=== PATIENT | male | born 1965 | race Caucasian/White ===

== ENCOUNTER 2024-11-10 18:17 | Emergency (ER) | payer OTHER, SELFPAY ==
--- NOTE | ~2024-11-10 | XR_ITS ---
CLINICAL HISTORY: pain --- Additional Notes or Special Instructions: bloated constipation 1 view abdomen Comparison: None provided Findings: No pneumoperitoneum or pneumatosis. Moderate stool burden. No abnormal calcifications. No acute fractures. IMPRESSION: The bowel gas pattern is within normal limits This document has been electronically signed by: Romi Olson MD on 11/10/2024 21:15:01
[2024-11-10 18:41] VITALS: BP 164/79; PULSE 58; RESP 16; TEMP 36.6; O2SAT 98; BMI 33.7
--- NOTE | 2024-11-10 18:42 | ED.GENADULT ---
HPI - General Adult General Chief complaint: Abdominal Pain Stated complaint: Abd pain Time Seen by Provider: 11/10/24 19:22 Source: patient Limitations: no limitations History of Present Illness ED Provider: Lina Guy PA-C HPI narrative: 59-year-old male presents with abdominal bloating for 5 days. Patient states he has been experiencing intermittent bloating, and he feels a bulge in the central abdominal wall. Denies inability to pass flatus, nausea, vomiting or fever, no abdominal pain. Patient states he has had minimal bowel movements over the past few days, but he is going. Patient is seen at urgent Care, they sent him here for further assessment. Related Data Allergies Allergy/AdvReac Type Severity Reaction Status Date / Time No Known Allergies Allergy Verified 11/10/24 18:43 Review of Systems Review of Systems: Yes all other systems are reviewed and are negative Constitutional: Constitutional: Denies fatigue and Denies fever(s) Cardiovascular: Cardiovascular: Denies chest pain and Denies dyspnea Respiratory: Respiratory: Denies cough and Denies dyspnea Gastrointestinal: Gastrointestinal: Denies abdominal pain, Reports bloating, Reports constipation, Denies nausea and Denies vomiting Endocrine: Endocrine: Denies fatigue [facility] Past Medical History Attestation statement: The following information was validated with the patient. Social History Social History Advance Directives: No Advance Directives Information Provided: Yes Do you have a plan to hurt others: No Plan Physical Exam ED Vital Signs: Vital Signs - 24 hr 11/10/24 18:41 Temperature 97.8 F Pulse Rate 58 Respiratory Rate 16 Blood Pressure 164/79 H Pulse Oximetry 98 Oxygen Delivery Method Room Air BMI result Body Mass Index 33.7 Const Other: Alert Orientation/consciousness: patient oriented x3 Resp Effort & Inspection: normal respiratory effort Cardio Other: Normal peripheral perfusion GI Other: Abdomen is soft, mildly distended, obese, there is a breach in the rectus abdominis, no bowel protruding through defect, no guarding no pain Skin Other: Warm dry no rash Neuro General: patient oriented x3, gait normal, no focal motor deficits and CN's II-XI intact bilaterally Psych Other: Cooperative Course Course Course Narrative: RME, this is a rapid medical exam performed by Mikhail Robles please refer to primary provider for complete H&P- 59 year old male presents for evaluation of abdominal pain. His symptoms started 5 days ago and involve most of his abdomen. Deneis any nausea, vomiting, fevers or chills. He was seen at urgent care and referred here for blood work and a CT scan. Medical Decision Making Medical Decision Making MDM Narrative: 59-year-old male presents with abdominal bloating for 5 days. Patient states he has been experiencing intermittent bloating, and he feels a bulge in the central abdominal wall. Denies inability to pass flatus, nausea, vomiting or fever, no abdominal pain. Patient states he has had minimal bowel movements over the past few days, but he is going. Patient is seen at urgent Care, they sent him here for further assessment. No chronic issues History: Per patient I have considered the following differential diagnoses: Strangulated hernia incarcerated hernia, bowel obstruction, constipation Plan: The patient does have a breach in the abdominal wall, without evidence of bowel passing through the defect. Doubtful to be bowel obstruction, he is not actively vomiting he has no pain, he is passing gas and having minimal bowel movements. He is likely just constipated adding a KUB, screening labs already obtained and they are normal. I have independently reviewed the following tests: Labs: No leukocytosis, not anemic, no electrolyte abnormality KUB:Findings: No pneumoperitoneum or pneumatosis. Moderate stool burden. No abnormal calcifications. No acute fractures. IMPRESSION: The bowel gas pattern is within normal limits Lab Data 11/10/24 20:15 11/10/24 20:15 Labs: Lab Results 11/10/24 Range/Units 20:15 WBC 6.2 (4.8-10.8) X10*3/uL RBC 5.09 (4.60-5.80) X10*6/uL Hgb 14.9 (14.0-18.0) g/dl Hct 42.7 (42.0-52.0) % MCV 83.9 (80.0-98.0) fL MCH 29.3 (27.0-33.0) pg MCHC 34.9 (31.0-36.0) g/dl RDW 12.8 (11.0-16.0) % Plt Count 161 (160-400) X10*3/uL MPV 11.1 (9.4-12.4) fL Immature Gran % (Auto) 0.2 (0.0-0.4) % Neut % (Auto) 69.2 (45-73) % Lymph % (Auto) 18.1 L (20-40) % Millard % (Auto) 8.5 (2-11) % Eos % (Auto) 3.5 (0-4) % Baso % (Auto) 0.5 (0-2) % Lymph # (Auto) 1.1 L (1.2-4.9) X10*3/uL Millard # (Auto) 0.5 (0.1-1.2) X10*3/uL Eos # (Auto) 0.2 (0.0-0.4) X10*3/uL Baso # (Auto) 0.0 (0.0-0.2) X10*3/uL Abs Immat Gran (auto) 0.01 (0.00-0.03) X10*3/uL Absolute Neuts (auto) 4.3 (2.0-8.3) x10*3/uL Absolute Nucleated RBC 0.000 (0.0-0.012) X10*3/uL Nucleated RBC % (auto) 0.0 (0.0-0.2) /100WBC Sodium 140 (135-145) mmol/L Potassium 4.1 (3.3-5.1) mmol/L Chloride 104 (96-108) mmol/L Carbon Dioxide 26 (22-29) mmol/L Anion Gap 14 (12-20) BUN 15 (9-16) mg/dL Creatinine 0.82 (0.5-1.4) mg/dL Estim Creat Clear Calc 115.6 Estimated GFR > 60 Random Glucose 87 (60-115) mg/dL Calcium 9.3 (8.4-10.2) mg/dL Magnesium 2.2 (1.6-2.6) mg/dL Total Bilirubin 0.7 (0.0-1.0) mg/dL AST 31 (5-37) U/L ALT 19 (0-40) U/L Alkaline Phosphatase 50 (39-117) U/L Total Protein 7.6 (6.5-8.0) g/dL Albumin 4.6 (3.5-5.0) g/dL Lipase 15 (8-78) U/L Discharge Plan Discharge Clinical Impression: Constipation Patient Disposition: Home, Self-Care Instructions: Constipation (ED) Additional Instructions: All of your labs were normal, you were found to be constipated. See home care instructions. Use OTC Colace twice a day. Use OTC MiraLax every hour until you begin having multiple large volume bowel movements. Follow up with your primary care provider as needed. Print Language: Syriac
--- OUTSIDE RECORDS SUMMARY | 2024-11-10 19:19 | XMS_ITS | Clinical Summary ---
Author Organization [facility] Address [address] [place] [address] Care Team Providers Care Dirt Bike Mechanic Name Role Phone Corrina Cm MD Primary Care Provider [phone] Allergies No known active allergies Medications Medication Sig Dispensed Refills Start Date End Date Status sertraline (ZOLOFT) 50 MG tablet Take 50 mg by mouth daily. 0 12/22/2020 Active clotrimazole-betame thasone (LOTRISONE) cream Apply topically 2 (two) times a day. 30 g 0 03/30/2021 Active methylPREDNISolone (MEDROL DOSEPACK) 4 MG tablet follow package directions 21 tablet 0 05/30/2021 Active meloxicam (MOBIC) 15 MG tablet Take 1 tablet (15 mg total) by mouth daily. 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/18/2019 Umbilical hernia without obstruction and without gangrene 01/18/2019 SBO (small bowel obstruction) 01/18/2019 Small bowel obstruction 12/23/2018 Anxiety 08/07/2015 Immunizations Name Administration Dates Next Due Covid-19 (J&J) 08/09/2020 Influenza Quad (Afluria/Fluz one) 0.5mL >=6mon Vial (SD-IIV4) 03/23/2018 Influenza Trivalent (Fluzone /Afluria) 5.0mL Multi-dose Vial 01/29/2021,02/16/2018,06/09/2017 Tdap 01/21/2022,06/16/2017 Family History Medical History Relation Name Comments Breast cancer Neg Hx Prostate cancer Neg Hx Social History Tobacco Use Types Packs/Day Years Used Date Smoking Tobacco: Never Smokeless Tobacco: Never Alcohol Use Standard Drinks/Week Comments Yes 0 (1 standard drink = 0.6 oz pur e alcohol) Beer on weekends occas Sex and Gender Information Value Date Recorded Sex Assigned at Male 12/23/2018 3:22 PM EDT Gender Identity Not on file Sexual Orientation Not on file Job Start Date Occupation Industry Not on file Not on file Not on file Last Filed Vital Signs Vital Sign Reading Time Taken Comments Blood Pressure 145/75 05/16/2023 3:31 PM EST Pulse 68 05/16/2023 3:31 PM EST Temperature 36.6 C (97.9 F) 05/16/2023 3:31 PM EST Respiratory Rate 20 05/16/2023 3:31 PM EST Oxygen Saturation 100% 05/16/2023 3:31 PM EST Inhaled Oxygen Concentration - - Weight 91.6 kg (202 lb) 05/16/2023 3:31 PM EST Height 172.7 cm (5' 8 ) 05/16/2023 3:31 PM EST Body Mass Index 30.71 05/16/2023 3:31 PM EST Plan of Treatment Health Maintenance Due Date Last Done Comments Hepatitis C Screening 1965 Depression Screening 1975 BMI Counseling 07/18/1981 Preventative Health Evaluation 07/18/1981 Colon Cancer Screening (Colonoscopy) 07/18/2008 COVID-19 Vaccine ( season) 2024 08/09/2020 Influenza Vaccine (#1) 2025 , 03/23/2018, 02/16/2018, Additional history exists DTap / Tdap / Td (3 - Td or Tdap) 01/22/2032 01/21/2022, 06/16/2017 RSV Adult > 60+ Yrs or (1 - 1-dose 75+ series) 07/18/2038 Shingrix-Zoster Vaccine Completed 01/20/2023, 09/16 Hepatitis B Vaccines Aged Out No long er eligible based on patient's age to complete this topic Pneumococcal Vaccine Aged Out No long er eligible based on patient's age to complete this topic RSV Ped < 20 months Aged Out No longe r eligible based on patient's age to complete this topic Advance Directives For more information, please contact: [phone] Latest Code Status on File Code Status Date Activated Date Inactivated Comments Full Code 12/23/2018 8:53 PM 12/28/2018 3:35 PM This code status was ascertained in the following way: discussion with patient . Care Teams Dirt Bike Mechanic Relationship Specialty Start Date End Date Corrina Cm MD [address] [place] [address] PCP - General Internal Medicine 09/04/16
--- OUTSIDE RECORDS SUMMARY | 2024-11-10 19:19 | XMS_ITS | Clinical Summary ---
Author Organization [facility] Address [address] [place] [address] Phone Care Team Providers Care Claims Representative Name Role Phone Corrina Cm MD Primary Care Provider [phone]- [phone] Allergies No known active allergies Medications sertraline (ZOLOFT) 50 mg tablet Take 1 tablet (50 mg total) by mouth. 1 Active methylPREDNISo lone (MEDROL DOSPAK) 4 mg tablet See administration instructions. 2 Active meloxicam (MOBIC) 15 mg tablet Take 1 tablet (15 mg total) by mouth 1 (one) time each day. 2 Active clotrimazole-b etamethasone (LOTRISONE) 1-0.05 % cream Apply topically. 1 Active cetirizine-pse udoephedrine (ZyrTEC-D) 5-120 mg per 12 hr tablet Take 1 tablet by mouth 2 (two) times a day. Active doxycycline (MONODOX) 100 mg capsule Take 1 capsule (100 mg total) by mouth 2 (two) times a day. Take with at least 8 ounces (large glass) of water, do not lie down for 30 minutes after Active fluconazole (DIFLUCAN) 150 mg tablet Take 1 tablet (150 mg total) by mouth 1 (one) time. Active fluticasone propionate (FLONASE) 50 mcg/actuation nasal spray Administer 1 spray into each nostril 1 (one) time each day. Shake gently. Before first use, prime pump. After use, clean tip and replace cap. Active cyclobenzaprin e (FLEXERIL) 10 mg tablet Take 1 tablet (10 mg total) by mouth 2 (two) times a day if needed for muscle spasms for up to 5 days. 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 Umbilical hernia without obstruction and without gangrene 01/18/2019 Small bowel obstruction (CMS/HCC V24, CMS/HCC V2 8) 12/23/2018 Anxiety 08/07/2015 Immunizations Name Administration Dates Next Due Influenza Quadrivalent, with preservative (Fluzone; Afluria) 6mo and older 03/23/2018 Influenza trivalent, with pr eservative (Fluzone; Afluria) 6mo and older 01/29/2021,02/16/2018,06/09/2017 Tdap Tetanus diptheria acell ular pertussis (Boostrix; Adacel) 7yo and older 01/21/2022,06/16/2017 Surgical History Surgery Date Site/Laterality Comments TYMPANOSTOMY TUBE PLACEMENT PROCEDURE:TYMPANOSTOMY TUBE PLACEMENT HERNIA REPAIR PROCEDURE:HERNIA REPAIR;COMMENT:x 2 CIRCUMCISION, PRIMARY 08/06/2017 N/A PROCEDURE:CIRCUMCISION;COMMENT:P rocedure: CIRCUMCISION; Surgeon: Boyd Samuel MD; Location: [facility] MAIN OPERATING ROOM; Service: Urology; Laterality: N/A; Medical History Medical History Date Comments Anxiety DX:Anxiety Family History Medical History Relation Name Comments Breast cancer Neg Hx Prostate cancer Neg Hx Social History Tobacco Use Types Packs/Day Years Used Date Smoking Tobacco: Never Smokeless Tobacco: Never Alcohol Use Standard Drinks/Week Comments Yes 0 (1 standard drink = 0.6 oz pur e alcohol) Sex and Gender Information Value Date Recorded Sex Assigned at Not on file Legal Sex Male 9:22 PM EST Gender Identity Not on file Sexual Orientation Not on file Obstetrics History Last Filed Vital Signs Vital Sign Reading Time Taken Comments Blood Pressure 160/82 07/08/2024 7:58 PM EST Pulse 62 07/08/2024 7:58 PM EST Temperature 36.7 C (98.1 F) 07/08/2024 7:58 PM EST Respiratory Rate 18 07/08/2024 7:58 PM EST Oxygen Saturation 100% 07/08/2024 7:58 PM EST Inhaled Oxygen Concentration - - Weight 93 kg (205 lb) 07/08/2024 7:58 PM EST Height 175.3 cm (5' 9 ) 07/08/2024 7:58 PM EST Body Mass Index 30.27 07/08/2024 7:58 PM EST Plan of Treatment Health Maintenance Due Date Last Done Comments Pneumococcal Vaccine: 50+ Years (1 of 1 - PCV) 07/18/2013 Colorectal Cancer Screening: Colonoscopy 04/10/2022 Depression Screening 04/10/2022 HIV Screening 04/10/2022 Hepatitis C Screening 04/10/2022 Social Influencers of Health Screening 04/10/2022 COVID-19 Vaccine ( season) 2024 08/09/2020 Influenza Vaccine (#1) 2025 , 03/23/2018, 02/16/2018, Additional history exists Cholesterol Screening (Lipid Panel) 09/11/2027 09/10/2022 DTaP,Tdap,and Td Vaccines (3 - Td or Tdap) 01/22/2032 01/21/2022, 06/16/2017 RSV Immunization Adult Patients (1 - 1-dose 75+ series) 07/18/2038 Zoster Vaccines Completed 01/20/2023, 09/16/2022 HIB Vaccines Aged Out No longer eligi ble based on patient's age to complete this topic HPV Vaccines Aged Out No longer eligi ble based on patient's age to complete this topic Hepatitis A Vaccines Aged Out No long er eligible based on patient's age to complete this topic Hepatitis B Vaccines Aged Out No long er eligible based on patient's age to complete this topic IPV Vaccines Aged Out No longer eligi ble based on patient's age to complete this topic MMR Vaccines Aged Out No longer eligi ble based on patient's age to complete this topic Meningococcal ACWY Vaccine Aged Out N o longer eligible based on patient's age to complete this topic Meningococcal B Vaccine Aged Out No l onger eligible based on patient's age to complete this topic RSV Immunization Patients Under 20 months Aged Out No longer eligible based on patient's age to complete this topic Varicella Vaccines Aged Out No longer eligible based on patient's age to complete this topic Procedures Procedure Name Priority Date/Time Associated Diagnosis Comments LIPID PANEL Routine 09/10/2022 from Last 3 Months or Most Recently Relevant to Health Maintenance Results * Lipid panel (09/10/2022) LDL/HDL Ratio 0 Comment:no interpretation Triglycerides 0 mg/dL Comment:no interpretation Cholesterol 0 mg/dL Comment:no interpretation HDL 0 mg/dL Comment:no interpretation LDL Cholesterol 0.0 mg/dL Comment:no interpretation Blood Venous blood specimen / Unknown us Historical Provider LAB BLOOD ORDERABLES Teresa l Result from Last 3 Months or Most Recently Relevant to Health Maintenance [place] [address] [place] [address] [employer] Care Teams Claims Representative Relationship Specialty Start Date End Date Corrina Cm MD [address] [place] [address] PCP - General Internal Medicine 09/04/16
[2024-11-10 20:00] VITALS: BP 132/78; PULSE 70; RESP 18; TEMP 36.9; O2SAT 99
[2024-11-10 20:59] LABS: MANUAL DIFF FLAG NO
[2024-11-10 21:02] LABS: Hematocrit 42.7 % (42.0-52.0); Hemoglobin 14.9 g/dl (14.0-18.0); Imm Gran Abs Auto 0.01 X10*3/uL (0.00-0.03); Imm Gran Pct Auto 0.2 % (0.0-0.4); Lymphocytes Absolute Auto 1.1 X10*3/uL (1.2-4.9); Mean Corpuscular HGB Conc 34.9 g/dl (31.0-36.0); Mean Corpuscular Hemoglobin 29.3 pg (27.0-33.0); Mean Corpuscular Volume 83.9 fL (80.0-98.0); NRBC Abs Auto 0.000 X10*3/uL (0.0-0.012); NRBC Pct Auto 0.0 /100WBC (0.0-0.2); Platelet Count 161 X10*3/uL (160-400); Red Blood Count 5.09 X10*6/uL (4.60-5.80); White Blood Count 6.2 X10*3/uL (4.8-10.8)
[2024-11-10 21:19] LABS: Alanine Aminotransferase 19 U/L (0-40); Albumin Level 4.6 g/dL (3.5-5.0); Alkaline Phosphatase 50 U/L (39-117); Anion Gap 14 (12-20); Aspartate Amino Transferase 31 U/L (5-37); Blood Urea Nitrogen 15 mg/dL (9-16); Calcium 9.3 mg/dL (8.4-10.2); Carbon Dioxide 26 mmol/L (22-29); Chloride 104 mmol/L (96-108); Creatinine Clr Calc Pharmacy 115.6; Estimated Glomerular Filt Rate > 60; Lipase 15 U/L (8-78); Potassium 4.1 mmol/L (3.3-5.1); Sodium 140 mmol/L (135-145); Total Protein 7.6 g/dL (6.5-8.0)
[2024-11-10 21:38] LABS: Magnesium 2.2 mg/dL (1.6-2.6)
[2024-11-10 22:08] VITALS: BP 132/78; PULSE 70; RESP 18; TEMP 36.9; O2SAT 99
== END 2024-11-10 22:13 | disposition home or self-care (01) ==
PROVIDERS: Physician Assistant; Emergency Provider Emergency Medicine Emergency Medical Services
DX: K59.00 Constipation, unspecified (principal); R10.9 Unspecified abdominal pain
CPT/HCPCS: 36415; 74018; 80053; 83690; 83735; 85025; 99283

== ENCOUNTER → 2024-11-10 19:48 | Outpatient (BNV) | payer OTHER, SELFPAY | PROVIDERS: Emergency Provider Emergency Medicine Emergency Medical Services; Visit Provider Nuclear Medicine | DX: R10.9 Unspecified abdominal pain (principal) | CPT/HCPCS: 74018 ==

== ENCOUNTER 2025-02-14 10:33 | Outpatient (AMB) | payer OTHER, SELFPAY ==
--- OUTSIDE RECORDS SUMMARY | 2022-01-21 12:03 | XMS_ITS | Encounter Summary ---
Author Organization [facility] Address [address] [place] [address] Care Team Providers Care Programmer Engineering And Scientific Name Role Phone Corrina Cm MD Primary Care Provider [phone] Corrina Cm MD Unavailable [phone] Encounter Details Date Type Department Care Team (Late st Contact Info) Description 01/21/2022 12:03 PM EDT Hospital Encounter [facility] [address] [place] [phone] Social History Tobacco Use Types Packs/Day Years [...] on filedocumented in this encounter Care Teams Programmer Engineering And Scientific Relationship Specialty Start Date End Date Corrina Cm MD PCP - General Internal Medicine 07/31/15 10/02/24 Corrina Cm MD [address] [place] [address] PCP - [employer] Attributed 06/03/20 06/02/23 documented as of this encounter
[2025-02-14 11:06] VITALS: BP 112/62; PULSE 59; RESP 18; TEMP 36.3; O2SAT 97; BMI 27.5
--- NOTE | 2025-02-14 11:06 | MHC.PC.OV ---
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 Accompanied by his , they moved from [place] over a year ago. Previous PCP: Last visit:Last year, year Last PE:August last year Specialist: urology ( Urology), needs new referral, GI Past medical history: anxiety, GERD, frequent urination Medications: Family HX: Problem: The patient is a 59-year-old male presenting with anxiety and gastroesophageal reflux disease management. The patient reports experiencing anxiety, which he describes as aggravation and worry, particularly at work. He has previously been prescribed hydroxyzine for anxiety, but he did not find it effective and discontinued use without consulting his physician. He is interested in exploring other medication options to manage his anxiety. Per chart review: The patient was on Paxil with positive effect but felt like he did not need this medication anymore and self-discontinued it. The patient has a history of gastroesophageal reflux disease (GERD), for which he is currently taking omeprazole 40 mg daily. He initially tried pantoprazole, which was ineffective, leading to the switch to omeprazole, which he reports is managing his symptoms well. He has made lifestyle changes, including switching from regular coffee to mushroom coffee, which he believes has contributed to weight loss and reduced bloating. The patient reports right shoulder pain, which he attributes to his physically demanding job involving heavy lifting. The pain is exacerbated by certain movements, such as the empty can test, and he occasionally takes Tylenol for relief. 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 1. Little interest or pleasure in doing things: not at all 2. Feeling down, depressed, or hopeless: not at all 3. Trouble falling or staying asleep, or sleeping too much: not at all 4. Feeling tired or having little energy: not at all 5. Poor appetite or overeating: not at all 6. Feeling bad about yourself - or that you are a failure or have let yourself or your family down: not at all 7. Trouble concentrating on things, such as reading the newspaper or watching television: not at all 8. Moving or speaking so slowly that other people could have noticed. Or the opposite - being so fidgety or restless that you have been moving around a lot more than usual: not at all 9. Thoughts that you would be better off or of hurting yourself in some way: not at all Total score: 0 Depression Screening Interpretation: Negative Depression Screening Done: Yes 38607 - PHQ-9 Billing: Yes Source: Developed by Drs. Meng Walters, Alem Rolon, Hema Mace and colleagues, with an educational callie from [employer]. Thrive Questionnaire I am a: Patient What is your living situation today?: I have a steady place to live Within the past 12 months, did the food you bought not last and you didn't have the money to get more?: I choose not to answer this question Within the past 12 months, did you worry whether your food would run out before you got money to buy more?: I choose not to answer this question Do you have trouble paying for medicines?: No Do you have trouble getting transportation to medical appointments?: No Do you have trouble paying your heating and electricity bill?: No Do you have trouble taking care of your child, family member or friend?: No Do you have trouble with day-to-day activities such as bathing, preparing meals, shopping, managing finances, etc.?: No Are you currently unemployed and looking for a job?: No Are you interested in more education?: No Please select the resources that you would like help with: None Currently or been in a relationship where the following occur: I choose not to answer THRIVE Score: 0 AUDIT C Alcohol Use Questionnaire (AUDIT-C) 1. How often do you have a drink containing alcohol?: Never Total Score: 0 ELLIOT-7 AMB Questionnaire ELLIOT-7 Feeling nervous, anxious, or on edge: 0 = Not at all Not being able to stop or control worryin = Not at all Worrying too much about different things: 0 = Not at all Trouble relaxin = Not at all Being so restless that it is hard to sit still: 0 = Not at all Becoming easily annoyed or irritable: 0 = Not at all Feeling afraid as if something awful might happen: 0 = Not at all Total ELLIOT-7 score (0-4 normal; 5-9 mild; 10-14 moderate; 15-21 severe): 0 Source: Developed by Drs. Meng Walters, Alem Rolon, Hema Mace and colleagues, with an educational callie from [employer]. ELLIOT-7 Assessment Billing ELLIOT-7 Assessment Tool: ELLIOT-7 Assessment 03316 Review of Systems Const Denies headache(s) Eyes Denies loss of vision ENT Denies vertigo, Denies dizziness, Denies headache(s) and Denies sore throat Card Denies chest pain, Denies leg edema and Denies lightheadedness Resp Denies cough, Denies hemoptysis and Denies wheezing GI Denies abdominal pain, Denies melena, Denies constipation, Reports heartburn (improves with medication), Denies diarrhea and Denies vomiting Denies dysuria, Reports urinary frequency (Chronic) and Denies urinary urgency Musc Reports arthralgias (right shoulder), Denies joint swelling, Denies numbness and Denies tingling Skin/Breast Denies lesions and Denies rash Neuro Denies Abnormal speech present, Denies behavioral changes, Denies vertigo, Denies dizziness, Denies headache(s), Denies loss of vision, Denies memory loss, Denies numbness and Denies tingling Psych Reports anxiety, Denies behavioral changes, Denies depression, Reports difficulty concentrating, Denies memory loss and Denies panic attacks Humberto/Lymph Denies easy bleeding and Denies easy bruising Aller/Immun Denies wheezing Physical exam (Primary Care) Vital Signs: Last Vital Signs Temp 97.3 F 02/14/25 11:06 Pulse 59 02/14/25 11:06 Resp 18 02/14/25 11:06 BP 112/62 02/14/25 11:06 Pulse Ox 97 02/14/25 11:06 Oxygen Delivery Method Room Air 02/14/25 11:06 BMI result Body Mass Index 27.5 Tobacco/Smoking Status: Tobacco use Status Tobacco use date assessed 02/14/25 02/14/25 11:14 Patient Tobacco Use Status Never used Tobacco 02/14/25 11:14 e-Cigarette/Vaping Use Never Used 02/14/25 11:14 PHQ-9: PHQ-9 Score PHQ-9: Total score 0 02/16/25 23:42 Depression Screening Interpretation: Negative Currently or been in a relationship where the following occur: I choose not to answer Const General: healthy appearing, no acute distress, alert and awake Nutritional Appearance: well nourished Orientation/consciousness: oriented to person, oriented to place and oriented to time HENMT Ears: TM's normal bilaterally General nose exam: Normal nasal mucous membranes and turbinates present Eyes Conjunctivae: conjunctivae normal Sclerae: sclerae normal Pupils: Equal, round and reactive pupils present Neck Neck: Yes no lymphadenopathy and Yes no JVD Thyroid: Thyroid normal Carotids: no bruits Resp Effort & Inspection: normal respiratory effort and not tachypneic Auscultation: no crackles, no rales, no rhonchi and no wheezes Cardio Rate: regular rate Rhythm: regular rhythm Heart sounds: no murmurs and normal S1 and S2 GI Palpation (GI): Soft to palpation, Tenderness to palpation present (GI) in the LLQ and in the RLQ, no hepatomegaly and no splenomegaly Auscultation: normal bowel sounds General: Yes no CVA tenderness Back/Spine/Pelvis Back: no CVA tenderness Skin General skin exam: no rashes or lesions noted and dry skin Neuro General: oriented to person, oriented to place and oriented to time Cranial nerves: Yes Equal, round and reactive pupils present Speech: No Abnormal speech present Gait exam (Neuro): Normal gait present Motor exam (neuro): no tremor noted Extrem Right upper extremity: full ROM and shoulder/upper arm Details: normal ROM; no tenderness and no swelling Left upper extremity: full ROM Right lower extremity: full ROM; no edema Left lower extremity: full ROM; no edema Psych Mental Status: mental status grossly normal Speech and movement: Normal speech and movement present Affect: normal affect Attitude: cooperative Thought process: Normal thought process present Coding Level of Care Code New Pt Level 4 (55204) Diagnoses Gastroesophageal reflux disease, unspecified whether esophagitis present K21.9 Esophagitis presence: esophagitis presence not specified Urinary frequency R35.0 Anxiety F41.9 Right shoulder pain, unspecified chronicity M25.511 Chronicity: unspecified Abdominal pain, unspecified abdominal location R10.9 Abdominal location: unspecified location Additional Codes PHQ-9 - 59325 - PHQ-9 Billing: Yes ([id number]) ELLIOT-7 Assessment Billing - ELLIOT-7 Assessment Tool: ELLIOT-7 Assessment 41688 ([id number]) Time Spent (min) 39 Assessment & Plan Assessment & Plan (1) GERD (gastroesophageal reflux disease): Code(s): K21.9 - Gastro-esophageal reflux disease without esophagitis Category: Medical Qualifiers: Esophagitis presence: esophagitis presence not specified Qualified Code(s): K21.9 - Gastro-esophageal reflux disease without esophagitis Plan: The patient is currently managing GERD with omeprazole 40 mg daily, which has been effective. Lifestyle modifications, including dietary changes, have also contributed to symptom improvement. (2) Urinary frequency: Code(s): R35.0 - Frequency of micturition Category: Medical Plan: Patient has a history of frequent urination. Evaluated by Urology in the past without any acute findings. He is requesting a new urology referral. He was going to [facility] urology, but since have moved to [place]. Urology referral placed (3) Anxiety: Code(s): F41.9 - Anxiety disorder, unspecified Category: Medical Plan: The patient expressed interest in exploring medication options for anxiety management, as previous treatment with hydroxyzine was ineffective. Upon review of the patient medical records. It was noted that he was started on Paxil with positive effects; however, the patient self discontinued the medication stating that he did not need it anymore. We will discuss this further with the patient upon his follow up visit before starting him on any medications. Considering psych referral (4) Right shoulder pain: Code(s): M25.511 - Pain in right shoulder Category: Medical Qualifiers: Chronicity: unspecified Qualified Code(s): M25.511 - Pain in right shoulder Plan: The patient reports shoulder pain likely due to occupational strain from heavy lifting. An x-ray of the shoulder has been ordered to further evaluate the cause of pain. (5) Abdominal pain: Code(s): R10.9 - Unspecified abdominal pain Category: Medical Qualifiers: Abdominal location: unspecified location Qualified Code(s): R10.9 - Unspecified abdominal pain Plan: Abdominal pain across lower abdomen with palpation. Abdominal ultrasound ordered to further evaluate Orders: Orders Comprehensive [place]. Panel Fast 02/14/25 Z00. - Encounter for general adult medical examination without abnormal findings UA CC w/rflx Micro + Cult 02/14/25. - Encounter for general adult medical examination without abnormal findings TSH reflex Free T4 02/14/2500. - Encounter for general adult medical examination without abnormal findings Vitamin D 25-OH Total 02/14/25 Z00.00 - Encounter for general adult medical examination without abnormal findings Complete Blood Count Auto Diff 02/14/2500. - Encounter for general adult medical examination without abnormal findings Lipid Panel 02/14/2500. - Encounter for general adult medical examination without abnormal findings PSA,Total (Free>4and<10) 02/14/25 Z00.00 - Encounter for general adult medical examination without abnormal findings US abdomen complete 02/14/25 R10.9 - Unspecified abdominal pain XR shoulder RT min 2V 02/14/25 M25.511 - Pain in right shoulder Referrals Urology Referral R35.0 - Frequency of micturition
--- OUTSIDE RECORDS SUMMARY | 2025-02-14 12:32 | XMS_ITS | Encounter Summary ---
Author Organization [address] [address] Care Team Providers Care Fitness Studies Teacher Name Role Phone Corrina Cm MD Primary Care Provider + [phone] Corrina Cm MD Unavailable [phone] Corrina Cm MD Unavailable [phone] Corrina Cm MD Unavailable [phone] Encounter Details Date Type Department Care Team (Late st Contact Info) Description 06/20/2017 Scanned Document [address] [phone] Provider, Generic Social History Tobacco Use Types Packs/Day Years Used Date Smoking Tobacco: Never Smokeless Tobacco: Never Alcohol Use Standard Drinks/Week Comments Yes 8 (1 standard drink = 0.6 oz pur e alcohol) Sex and Gender Information Value Date Recorded Sex Assigned at Not on file Legal Sex Male 9:08 AM EDT Gender Identity Not on file Sexual Orientation Not on file documented as of this encounter Plan of Treatment Not on file documented as of this encounter Visit Diagnoses Not on filedocumented in this encounter Care Teams Fitness Studies Teacher Relationship Specialty Start Date End Date Corrina Cm MD PCP - General Internal Medicine 07/31/15 10/02/24 Corrina Cm MD [address] [place] [address] PCP - [employer] Commercial Attributed 06/03/20 06/02/23 Corrina Cm MD [address] [place] [address] PCP - [employer] Commercial Attributed 04/02/19 05/02/20 Corrina Cm MD [address] [place] [address] PCP - [place] Commercial Attributed 10/01/24 documented as of this encounter
--- OUTSIDE RECORDS SUMMARY | 2025-02-14 12:32 | XMS_ITS | Encounter Summary ---
Author Organization [address] [address] Care Team Providers Care Senior Engineering Manager Name Role Phone Corrina Cm MD Primary Care Provider + [phone] Corrina Cm MD Unavailable [phone] Corrina Cm MD Unavailable [phone] Encounter Details Date Type Department Care Team (Late st Contact Info) Description 03/30/2021 Scanned Document [address] [phone] Provider, Generic Social History Tobacco Use Types Packs/Day Years Used Date Smoking Tobacco: Never Smokeless Tobacco: Never Alcohol Use Standard Drinks/Week Comments Yes 8 (1 standard drink = 0.6 oz pur e alcohol) weekends PHQ-2 Answer Date Recorded PHQ-2 Total Score 0 01/29/2021 Sex and Gender Information Value Date Recorded Sex Assigned at Not on file Legal Sex Male 9:08 AM EDT Gender Identity Not on file Sexual Orientation Not on file documented as of this encounter Plan of Treatment Not on file documented as of this encounter Visit Diagnoses Not on filedocumented in this encounter Care Teams Senior Engineering Manager Relationship Specialty Start Date End Date Corrina Cm MD PCP - General Internal Medicine 07/31/15 10/02/24 Corrina Cm MD [address] [facility] [address] PCP - [employer] Commercial Attributed 06/03/20 06/02/23 Corrina Cm MD [address] [place] [address] PCP - [place] Commercial Attributed 10/01/24 documented as of this encounter
--- OUTSIDE RECORDS SUMMARY | 2025-02-14 12:32 | XMS_ITS | Encounter Summary ---
Author Organization [address] [address] Care Team Providers Care Manager Of School Name Role Phone Corrina Cm MD Primary Care Provider + [phone] Corrina Cm MD Unavailable [phone] Corrina Cm MD Unavailable [phone] Corrina Cm MD Unavailable [phone] Encounter Details Date Type Department Care Team (Late st Contact Info) Description 08/05/2017 Scanned Document [address] [phone] Provider, Generic Social History Tobacco [...] filedocumented in this encounter Care Teams Manager Of School Relationship Specialty Start Date End Date Corrina Cm MD PCP - General Internal Medicine 07/31/15 10/02/24 Corrina Cm MD [address] [place] [address] PCP - [employer] Commercial Attributed 06/03/20 06/02/23 Corrina Cm MD [address] [place] [address] PCP - [employer] Commercial Attributed 04/02/19 05/02/20 Corrina Cm MD [address] [place] [address] PCP - [place] Commercial Attributed 10/01/24 documented as of this encounter
--- OUTSIDE RECORDS SUMMARY | 2025-02-14 12:32 | XMS_ITS | Encounter Summary ---
Author Organization [address] [address] Care Team Providers Care Wood Grinder Name Role Phone Corrina Cm MD Primary Care Provider + [phone] Corrina Cm MD Unavailable [phone] Corrina Cm MD Unavailable [phone] Encounter Details Date Type Department Care Team (Late st Contact Info) Description 05/30/2021 Scanned Document [address] [phone] Provider, Generic Social History Tobacco Use Types Packs/Day Years Used Date Smoking Tobacco: Never Smokeless Tobacco: Never Alcohol Use Standard Drinks/Week Comments Yes 8 (1 standard drink = 0.6 oz pur e alcohol) weekends PHQ-2 Answer Date Recorded PHQ-2 Total Score 0 04/09/2021 Sex and Gender Information Value Date Recorded Sex Assigned at Not on file Legal Sex Male 9:08 AM EDT Gender Identity Not on file Sexual Orientation Not on file documented as of this encounter Plan of Treatment Not on file documented as of this encounter Visit Diagnoses Not on filedocumented in this encounter Care Teams Wood Grinder Relationship Specialty Start Date End Date Corrina Cm MD PCP - General Internal Medicine 07/31/15 10/02/24 Corrina Cm MD [address] [facility] [place] [address] PCP - [employer] Commercial Attributed 06/03/20 06/02/23 Corrina Cm MD [address] [place] [address] PCP - [place] Commercial Attributed 10/01/24 documented as of this encounter
--- OUTSIDE RECORDS SUMMARY | 2025-02-14 12:32 | XMS_ITS | Encounter Summary ---
Author Organization [address] [address] Care Team Providers Care Dry Roller Name Role Phone Corrina Cm MD Primary Care Provider + [phone] Corrina Cm MD Unavailable [phone] Corrina Cm MD Unavailable [phone] Corrina Cm MD Unavailable [phone] Encounter Details Date Type Department Care Team (Late st Contact Info) Description 08/06/2017 Scanned Document [address] [phone] Provider, Generic Social History Tobacco [...] on filedocumented in this encounter Care Teams Dry Roller Relationship Specialty Start Date End Date Corrina Cm MD PCP - General Internal Medicine 07/31/15 10/02/24 Corrina Cm MD [address] [place] [address] PCP - [employer] Commercial Attributed 06/03/20 06/02/23 Corrina Cm MD [address] [place] [address] PCP - [employer] Commercial Attributed 04/02/19 05/02/20 Corrina Cm MD [address] [place] [address] PCP - [place] Commercial Attributed 10/01/24 documented as of this encounter
--- OUTSIDE RECORDS SUMMARY | 2025-02-14 12:32 | XMS_ITS | Encounter Summary ---
Author Organization [address] [address] Care Team Providers Care Mail Sorter And Delivery Name Role Phone Corrina Cm MD Primary Care Provider Corrina Cm MD Unavailable [phone] Corrina Cm MD Unavailable [phone] Encounter Details Date Type Department Care Team (Late st Contact Info) Description 01/06/2021 Scanned Document [address] [phone] Provider, Generic Social History Tobacco Use Types Packs/Day Years Used Date Smoking Tobacco: Never Smokeless Tobacco: Never Alcohol Use Standard Drinks/Week Comments Yes 8 (1 standard drink = 0.6 oz pur e alcohol) weekends PHQ-2 Answer Date Recorded PHQ-2 Total Score 0 09/25/2020 Sex and Gender Information Value Date Recorded Sex Assigned at Not on file Legal Sex Male 9:08 AM EDT Gender Identity Not on file Sexual Orientation Not on file documented as of this encounter Plan of Treatment Not on file documented as of this encounter Visit Diagnoses Not on filedocumented in this encounter Care Teams Mail Sorter And Delivery Relationship Specialty Start Date End Date Corrina Cm MD PCP - General Internal Medicine 07/31/15 10/02/24 Corrina Cm MD [address] [place] [address] PCP - [employer] Commercial Attributed 06/03/20 06/02/23 Corrina Cm MD [address] [place] [address] PCP - [place] Commercial Attributed 10/01/24 documented as of this encounter
--- OUTSIDE RECORDS SUMMARY | 2025-02-14 12:32 | XMS_ITS | Encounter Summary ---
Author Organization [facility] Address [address] [place] [address] Care Team Providers Care Electrician Constructor Supervisor Name Role Phone Corrina Cm MD Primary Care Provider + [phone] Corrina Cm MD Unavailable [phone] Corrina Cm MD Unavailable [phone] Encounter Details Date Type Department Care Team (Late st Contact Info) Description 06/12/2020 Scanned Document [address] [phone] Provider, Generic Social History Tobacco Use Types Packs/Day Years Used Date Smoking Tobacco: Never Smokeless Tobacco: Never Alcohol Use Standard Drinks/Week Comments Yes 8 (1 standard drink = 0.6 oz pur e alcohol) weekends Sex and Gender Information Value Date Recorded Sex Assigned at Not on file Legal Sex Male 9:08 AM EDT Gender Identity Not on file Sexual Orientation Not on file documented as of this encounter Plan of Treatment Not on file documented as of this encounter Visit Diagnoses Not on filedocumented in this encounter Care Teams Electrician Constructor Supervisor Relationship Specialty Start Date End Date Corrina Cm MD PCP - General Internal Medicine 07/31/15 10/02/24 Corrina Cm MD [address] [place] [address] [address] [place] [address] PCP - [employer] Commercial Attributed 06/03/20 06/02/23 Corrina Cm MD [address] [place] [address] PCP - [place] Commercial Attributed 10/01/24 documented as of this encounter
--- OUTSIDE RECORDS SUMMARY | 2025-02-14 12:32 | XMS_ITS | Encounter Summary ---
Author Organization [facility] Address [address] [place] [address] Care Team Providers Care Inseam Leveler Name Role Phone Corrina Cm MD Primary Care Provider + [phone] Corrina Cm MD Unavailable [phone] Corrina Cm MD Unavailable [phone] Corrina Cm MD Unavailable [phone] Encounter Details Date Type Department Care Team (Late st Contact Info) Description 06/10/2017 Scanned Document [address] [place] [phone] Corrina Cm MD [address] [facility] [address] [place] [address] Social History Tobacco Use Types Packs/Day Years [...] on filedocumented in this encounter Care Teams Inseam Leveler Relationship Specialty Start Date End Date Corrina Cm MD PCP - General Internal Medicine 07/31/15 10/02/24 Corrina Cm MD [address] [place] [address] PCP - [employer] Commercial Attributed 06/03/20 06/02/23 Corrina Cm MD [address] [place] [address] PCP - [employer] Commercial Attributed 04/02/19 05/02/20 Corrina Cm MD [address] [place] [address] PCP - [place] Commercial Attributed 10/01/24 documented as of this encounter
--- OUTSIDE RECORDS SUMMARY | 2025-02-14 12:32 | XMS_ITS | Encounter Summary ---
Author Organization [address] [address] Care Team Providers Care Wicker Worker Name Role Phone Corrina Cm MD Primary Care Provider + [phone] Corrina Cm MD Unavailable [phone] Corrina Cm MD Unavailable [phone] Corrina Cm MD Unavailable [phone] Encounter Details Date Type Department Care Team (Late st Contact Info) Description 04/06/2020 Scanned Document [address] [place] [phone] Provider, Generic Social History Tobacco Use [...] Exposure Response Date Recorded In the last month, have you been in contact with someone who was confirmed or suspected to have Coronavirus / COVID-19? No / Unsure 04/09/2020 6:18 PM EST documented as of this encounter Plan of Treatment Not on file documented as of this encounter Visit Diagnoses Not on filedocumented in this encounter Care Teams Wicker Worker Relationship Specialty Start Date End Date Corrina Cm MD PCP - General Internal Medicine 07/31/15 10/02/24 Corrina Cm MD [address] [place] [address] PCP - [employer] Commercial Attributed 06/03/20 06/02/23 Corrina Cm MD [address] [place] [address] PCP - United Commercial Attributed 04/02/19 05/02/20 Corrina Cm MD [address] [place] [address] PCP - [place] Commercial Attributed 10/01/24 documented as of this encounter
--- OUTSIDE RECORDS SUMMARY | 2025-02-14 12:33 | XMS_ITS | Encounter Summary ---
Author Organization [facility] Address [address] [place] [address] Care Team Providers Care Event Executive Name Role Phone Corrina Cm MD Primary Care Provider [phone] Corrina Cm MD Unavailable [phone] Corrina Cm MD Unavailable [phone] Encounter Details Date Type Department Care Team (Late st Contact Info) Description 09/07/[address] [phone] Corrina Cm MD [address] [place] [phone] Social History Tobacco Use Types Packs/Day Years [...] on file documented as of this encounter Miscellaneous Notes * Telephone Encounter - Yudelka Price MA - 09/07/2022 2:23 PM EDT PE blood work ordered and Pt notified * Telephone Encounter - Faby Rivas - 09/07/2022 8:54 AM EDT Pt is asking for labs to be placed before his appt. Please call when ordered. documented in this encounter Plan of Treatment Not on file documented as of this encounter Visit Diagnoses Not on filedocumented in this encounter Care Teams Event Executive Relationship Specialty Start Date End Date Corrina Cm MD PCP - General Internal Medicine 07/31/15 10/02/24 Corrina Cm MD [address] [place] [address] PCP - [place] Commercial Attributed 06/03/20 06/02/23 Corrina Cm MD [address] [place] [address] PCP - [place] Commercial Attributed 10/01/24 documented as of this encounter
--- OUTSIDE RECORDS SUMMARY | 2025-02-14 12:33 | XMS_ITS | Encounter Summary ---
Author Organization [facility] Address [address] [place] [address] Care Team Providers Care Production Gear Cutter Name Role Phone Corrina Cm MD Primary Care Provider Corrina Cm MD Unavailable [phone] Corrina Cm MD Unavailable [phone] Corrina Cm MD Unavailable [phone] Encounter Details Date Type Department Care Team (Late st Contact Info) Description 09/04/2016 Scanned Document [address] [phone] Provider, Generic Social History Tobacco Use Types Packs/Day Years Used Date Smoking Tobacco: Never Alcohol Use Standard Drinks/Week Comments [...] on filedocumented in this encounter Care Teams Production Gear Cutter Relationship Specialty Start Date End Date Corrina Cm MD PCP - General Internal Medicine 07/31/15 10/02/24 Corrina Cm MD [address] [place] [address] PCP - [employer] Commercial Attributed 06/03/20 06/02/23 Corrina Cm MD [address] [place] [address] PCP - United Commercial Attributed 04/02/19 05/02/20 Corrina Cm MD [address] [place] [address] PCP - [place] Commercial Attributed 10/01/24 documented as of this encounter
--- OUTSIDE RECORDS SUMMARY | 2025-02-14 12:33 | XMS_ITS | Encounter Summary ---
Author Organization [facility] Address [address] [place] [address] Care Team Providers Care Caponizer Name Role Phone Corrina Cm MD Primary Care Provider + [phone] Corrina Cm MD Unavailable [phone] Corrina Cm MD Unavailable [phone] Corrina Cm MD Unavailable [phone] Encounter Details Date Type Department Care Team (Late st Contact Info) Description 07/30/2015 Scanned Document [address] [place] [phone] Provider, Generic Social History Tobacco Use Types Packs/Day Years Used Date Smoking Tobacco: Never Assessed Sex and Gender Information Value Date Recorded Sex Assigned at Not on file Legal Sex Male 9:08 AM EDT Gender Identity Not on file Sexual Orientation Not on file documented as of this encounter Plan of Treatment Not on file documented as of this encounter Visit Diagnoses Not on filedocumented in this encounter Care Teams Caponizer Relationship Specialty Start Date End Date Corrina Cm MD PCP - General Internal Medicine 07/31/15 10/02/24 Corrina Cm MD 100 [facility] [address] [place] [address] PCP - C[employer]a Commercial Attributed 06/03/20 06/02/23 Corrina Cm MD [address] [place] [address] PCP - United Commercial Attributed 04/02/19 05/02/20 Corrina Cm MD [address] [place] [address] PCP - [place] Commercial Attributed 10/01/24 documented as of this encounter
--- OUTSIDE RECORDS SUMMARY | 2025-02-14 12:33 | XMS_ITS | Encounter Summary ---
Author Organization [facility] Address [address] [place] [address] Care Team Providers Care Burlap Man Name Role Phone Corrina Cm MD Primary Care Provider Corrina Cm MD Unavailable [phone] Corrina Cm MD Unavailable [phone] Corrina Cm MD Unavailable [phone] Encounter Details Date Type Department Care Team (Late st Contact Info) Description 11/20/2015 Scanned Document [address] [phone] Provider, Generic Social History Tobacco [...] on filedocumented in this encounter Care Teams Burlap Man Relationship Specialty Start Date End Date Corrina Cm MD PCP - General Internal Medicine 07/31/15 10/02/24 Corrina Cm MD [address] [place] [address] PCP - C[employer] Commercial Attributed 06/03/20 06/02/23 Corrina Cm MD [address] [place] [address] PCP - United Commercial Attributed 04/02/19 05/02/20 Corrina Cm MD [address] [place] [address] PCP - [place] Commercial Attributed 10/01/24 documented as of this encounter
--- OUTSIDE RECORDS SUMMARY | 2025-02-14 12:33 | XMS_ITS | Encounter Summary ---
Author Organization [facility] Address [address] [place] [address] Care Team Providers Care Braided Band Assembler Name Role Phone Corrina Cm MD Primary Care Provider + [phone] Corrina Cm MD Unavailable [phone] Corrina Cm MD Unavailable [phone] Corrina Cm MD Unavailable [phone] Encounter Details Date Type Department Care Team (Late st Contact Info) Description 03/11/2019 Scanned Document [address] [phone] General Internal Medicine, Scan Social History Tobacco Use Types Packs/Day Years [...] on filedocumented in this encounter Care Teams Braided Band Assembler Relationship Specialty Start Date End Date Corrina Cm MD PCP - General Internal Medicine 07/31/15 10/02/24 Corrina Cm MD [address] [place] [address] PCP - C[employer]a Commercial Attributed 06/03/20 06/02/23 Corrina Cm MD [address] [place] [address] PCP - United Commercial Attributed 04/02/19 05/02/20 Corrina Cm MD [address] [place] [address] PCP - [place] Commercial Attributed 10/01/24 documented as of this encounter
--- OUTSIDE RECORDS SUMMARY | 2025-02-14 12:33 | XMS_ITS | Encounter Summary ---
Author Organization [address] [address] Care Team Providers Care Subway Train Driver Name Role Phone Corrina Cm MD Primary Care Provider + [phone] Corrina Cm MD Unavailable [phone] Corrina Cm MD Unavailable [phone] Corrina Cm MD Unavailable [phone] Encounter Details Date Type Department Care Team (Late st Contact Info) Description 01/25/2019 Scanned Document [address] [place] [phone] Gastroenterology, Scan Social History Tobacco Use Types Packs/Day [...] Procedure Name Priority Date/Time Associated Diagnosis Comments PATHOLOGY GENERAL 01/25/2019 documented in this encounter Results * PATHOLOGY GENERAL (01/25/2019) 01/25/2019 us Scan Gastroenterology [facility] HX PATH PROCEDURES Horacio vanessa Result - Final documented in this encounter Visit Diagnoses Not on filedocumented in this encounter Care Teams Subway Train Driver Relationship Specialty Start Date End Date Corrina Cm MD PCP - General Internal Medicine 07/31/15 10/02/24 Corrina Cm MD [address] [place] [address] PCP - [employer]a Commercial Attributed 06/03/20 06/02/23 Corrina Cm MD [address] [place] [address] PCP - United Commercial Attributed 04/02/19 05/02/20 Crorina Cm MD [address] [place] [address] PCP - [place] Commercial Attributed 10/01/24 documented as of this encounter
--- OUTSIDE RECORDS SUMMARY | 2025-02-14 12:33 | XMS_ITS | Encounter Summary ---
Author Organization [facility] Address [address] [place] [address] Care Team Providers Care Verification Specialist Name Role Phone Corrina Cm MD Primary Care Provider + [phone] Corrina Cm MD Unavailable [phone] Corrina Cm MD Unavailable [phone] Corrina Cm MD Unavailable [phone] Encounter Details Date Type Department Care Team (Late st Contact Info) Description 05/07/2016 Scanned Document [facility] [address] [facility] [address] [place] [phone] Corrina Cm MD 100 [facility] [address] [place] [address] Social History Tobacco Use Types Packs/Day Years [...] on filedocumented in this encounter Care Teams Verification Specialist Relationship Specialty Start Date End Date Corrina Cm MD PCP - General Internal Medicine 07/31/15 10/02/24 Corrina Cm MD [address] [place] [address] PCP - C[employer]a Commercial Attributed 06/03/20 06/02/23 Corrina Cm MD [address] [place] [address] PCP - United Commercial Attributed 04/02/19 05/02/20 Corrina Cm MD [address] [place] [address] PCP - [place] Commercial Attributed 10/01/24 documented as of this encounter
--- OUTSIDE RECORDS SUMMARY | 2025-02-14 12:33 | XMS_ITS | Clinical Summary ---
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/18/2019 Anxiety 08/07/2015 Immunizations Immunization Administration Dates Next Due Influenza (AFLURIA/FLUZONE) Inactivated/Split Quadrivalent with Preservative IM 03/23/2018 Influenza Inactivated/Split Preservative Free IM 01/29/2021,02/16/2018,06/09/2017 Tdap 01/21/2022,06/16/2017 Zoster Vaccine Recombinant (Shingrix) 01/20/2023 ,09/16/2022 Family History Medical History Relation Name Comments Emphysema Father Emphysema Mother Relation Name Status Comments Father Mother Social History Tobacco Use Types Packs/Day Years [...] on file Sexual Orientation Not on file Last Filed Vital Signs Vital Sign Reading Time Taken Comments Blood Pressure 110/78 09/22/2023 7:53 AM EDT Pulse 61 09/22/2023 7:53 AM EDT Temperature 36.2 C (97.1 F) 09/22/2023 7:53 AM EDT Respiratory Rate 16 09/22/2023 7:53 AM EDT Oxygen Saturation 97% 09/22/2023 7:53 AM EDT Inhaled Oxygen Concentration - - Weight 90.4 kg (199 lb 4.8 oz) 09/22/2023 7:53 A M EDT Height 175.3 cm (5' 9 ) 09/22/2023 7:53 AM EDT Body Mass Index 29.43 09/22/2023 7:53 AM EDT Plan of Treatment Health Maintenance Due Date Last Done Comments Pneumococcal Vaccines 50+ (1 of 1 - PCV) 07/18/2013 Influenza Vaccine 12/01/2024 01/29/2021, , 03/23/2018, Additional history exists COVID-19 Vaccine (2 - 2024- season) 2025 08/09/2020 Colonoscopy 01/25/2029 01/25/2019 DTaP/Tdap/Td Vaccines (3 - Td or Tdap) 01/22/2032 01/21/2022, 06/16/2017 RSV Vaccine 50 years and older and Patients (1 - 1-dose 75+ series) 07/18/2038 Zoster (Shingles) Vaccine Completed 01/20/2023, HIV Screening Discontinued Hepatitis B Vaccines Aged Out No long er eligible based on patient's age to complete this topic Hepatitis C Virus Screening Discontinued Insurance [employer] INDIVIDUAL EXCHANGE PPO BLUE CROSS INDIVIDUAL EXCHANGE PPO Care Teams Edge Beader Relationship Specialty Start Date End Date Corrina Cm MD [address] [place] [address] PCP - [place] Commercial Attributed 10/01/24
--- OUTSIDE RECORDS SUMMARY | 2025-02-14 12:33 | XMS_ITS | Clinical Summary ---
Author Organization [facility] Address [address] [place] [address] Care Team Providers Care Or First Assist Registered Nurse Name Role Phone Corrina Cm MD Primary Care Provider [phone] Allergies No known active allergies Medications Medication [...] Screening (Colonoscopy) 07/18/2008 COVID-19 Vaccine ( season) 2025 08/09/2020 Influenza Vaccine (#1) 2025 , 03/23/2018, [...] Advance Directives For more information, please contact: [phone] Latest Code Status on File Code Status Date Activated Date Inactivated Comments Full Code 12/23/2018 8:53 PM 12/28/2018 3:35 PM This code status was ascertained in the following way: discussion with patient . Care Teams Or First Assist Registered Nurse Relationship Specialty Start Date End Date Corrina Cm MD [address] [place] [address] PCP - General Internal Medicine 09/04/16
--- OUTSIDE RECORDS SUMMARY | 2025-02-14 12:33 | XMS_ITS | Encounter Summary ---
Author Organization [facility] Address [address] [place] [address] Care Team Providers Care Business Control Specialist Name Role Phone Corrina Cm MD Primary Care Provider + [phone] Corrina mC MD Unavailable [phone] Corrina Cm MD Unavailable [phone] Corrina Cm MD Unavailable [phone] Encounter Details Date Type Department Care Team (Late st Contact Info) Description 12/23/2018 Scanned Document [address] [phone] General Surgery, Scan Social History Tobacco Use Types Packs/Day [...] on filedocumented in this encounter Care Teams Business Control Specialist Relationship Specialty Start Date End Date Corrina Cm MD PCP - General Internal Medicine 07/31/15 10/02/24 Corrina Cm MD [address] [place] [address] PCP - C[employer]a Commercial Attributed 06/03/20 06/02/23 Corrina Cm MD [address] [place] [address] PCP - United Commercial Attributed 04/02/19 05/02/20 Corrina Cm MD [address] [place] [address] PCP - [place] Commercial Attributed 10/01/24 documented as of this encounter
--- OUTSIDE RECORDS SUMMARY | 2025-02-14 12:33 | XMS_ITS | Encounter Summary ---
Author Organization [facility] Address [address] [place] [address] Care Team Providers Care Deck Hand Name Role Phone Corrina Cm MD Primary Care Provider Corrina Cm MD Unavailable [phone] Corrina Cm MD Unavailable [phone] Corrina Cm MD Unavailable [phone] Encounter Details Date Type Department Care Team (Late st Contact Info) Description 09/18/2015 Scanned Document [address] [phone] Provider, Generic Social History Tobacco Use Types Packs/Day Years Used Date Smoking Tobacco: Never Alcohol Use Standard Drinks/Week Comments Not Asked 0 (1 standard drink = 0.6 oz [...] on filedocumented in this encounter Care Teams Deck Hand Relationship Specialty Start Date End Date Corrina Cm MD PCP - General Internal Medicine 07/31/15 10/02/24 Corrina Cm MD [address] [place] [address] PCP - C[employer]a Commercial Attributed 06/03/20 06/02/23 Corrina Cm MD [address] [place] [address] PCP - United Commercial Attributed 04/02/19 05/02/20 Corrina Cm MD [address] [place] [address] PCP - [place] Commercial Attributed 10/01/24 documented as of this encounter
--- OUTSIDE RECORDS SUMMARY | 2025-02-14 12:33 | XMS_ITS | Encounter Summary ---
Author Organization [facility] Address [address] [place] [address] Care Team Providers Care Proofer Prepress Name Role Phone Corrina Cm MD Primary Care Provider + [phone] Corrina Cm MD Unavailable [phone] Corrina Cm MD Unavailable [phone] Corrina Cm MD Unavailable [phone] Encounter Details Date Type Department Care Team (Late st Contact Info) Description 01/25/2019 Scanned Document [facility] [address] [place] [phone] Corrina Cm MD 100 [facility] [address] [place] [address] Social History Tobacco Use Types Packs/Day Years [...] on filedocumented in this encounter Care Teams Proofer Prepress Relationship Specialty Start Date End Date Corrina Cm MD PCP - General Internal Medicine 07/31/15 10/02/24 Corrina Cm MD [address] [place] [address] PCP - C[employer]a Commercial Attributed 06/03/20 06/02/23 Corrina Cm MD [address] [place] [address] PCP - United Commercial Attributed 04/02/19 05/02/20 Corrina Cm MD [address] [place] [address] PCP - [place] Commercial Attributed 10/01/24 documented as of this encounter
--- OUTSIDE RECORDS SUMMARY | 2025-02-14 12:33 | XMS_ITS | Encounter Summary ---
Author Organization [address] [address] Care Team Providers Care Hand Binder Stripper Name Role Phone Corrina Cm MD Primary Care Provider Corrina Cm MD Unavailable [phone] Corrina Cm MD Unavailable [phone] Corrina Cm MD Unavailable [phone] Encounter Details Date Type Department Care Team (Late st Contact Info) Description 05/23/2017 Scanned Document [address] [phone] Provider, Generic Social History Tobacco [...] on filedocumented in this encounter Care Teams Hand Binder Stripper Relationship Specialty Start Date End Date Corrina Cm MD PCP - General Internal Medicine 07/31/15 10/02/24 Corrina Cm MD [address] [place] [address] PCP - C[employer]a Commercial Attributed 06/03/20 06/02/23 Corrina Cm MD [address] [place] [address] PCP - United Commercial Attributed 04/02/19 05/02/20 Corrina Cm MD [address] [place] [address] PCP - [place] Commercial Attributed 10/01/24 documented as of this encounter
--- OUTSIDE RECORDS SUMMARY | 2025-02-14 12:33 | XMS_ITS | Encounter Summary ---
Author Organization [facility] Address [address] [place] [address] Care Team Providers Care Operations Lead Name Role Phone Corrina Cm MD Primary Care Provider [phone] Corrina Cm MD Unavailable [phone] Corrina Cm MD Unavailable [phone] Encounter Details Date Type Department Care Team (Late Contact Info) Description 06/05/2022 Scanned Document [facility] PRIMARY CARE SCAN Corrina Cm MD [address] [place], [place] [id number] Social History Tobacco Use Types Packs/Day Years [...] suspected to have Coronavirus/COVID-19? No / Unsure 05/21/2022 9:06 AM EST documented as of this encounter Plan of Treatment Not on file documented as of this encounter Visit Diagnoses Not on filedocumented in this encounter Care Teams Operations Lead Relationship Specialty Start Date End Date Corrina Cm MD PCP - General Internal Medicine 07/31/15 10/02/24 Corrina Cm MD [address] [place] [address] PCP - C[employer]a Commercial Attributed 06/03/20 06/02/23 Corrina Cm MD [address] [place], [place] [address] PCP - [place] Commercial Attributed 10/01/24 documented as of this encounter
--- OUTSIDE RECORDS SUMMARY | 2025-02-14 12:33 | XMS_ITS | Encounter Summary ---
Author Organization [address] [address] Care Team Providers Care Senior Sharepoint Developer Name Role Phone Corrina Cm MD Primary Care Provider + [phone] Corrina Cm MD Unavailable [phone] Corrina Cm MD Unavailable [phone] Corrina Cm MD Unavailable [phone] Encounter Details Date Type Department Care Team (Late st Contact Info) Description 12/23/2018 Scanned Document [address] [phone] Provider, Generic Social History Tobacco [...] filedocumented in this encounter Care Teams Senior Sharepoint Developer Relationship Specialty Start Date End Date Corrina Cm MD PCP - General Internal Medicine 07/31/15 10/02/24 Corrina Cm MD [address] [place] [address] PCP - C[employer]a Commercial Attributed 06/03/20 06/02/23 Corrina Cm MD [address] [place] [address] PCP - United Commercial Attributed 04/02/19 05/02/20 Corrina Cm MD [address] [place] [address] PCP - [place] Commercial Attributed 10/01/24 documented as of this encounter
--- OUTSIDE RECORDS SUMMARY | 2025-02-14 12:33 | XMS_ITS | Encounter Summary ---
Author Organization [facility] Address [address] [place] [address] Care Team Providers Care Client Relations Associate Name Role Phone Corrina Cm MD Primary Care Provider Corrina Cm MD Unavailable [phone] Corrina Cm MD Unavailable [phone] Corrina Cm MD Unavailable [phone] Encounter Details Date Type Department Care Team (Late st Contact Info) Description 05/29/2017 Scanned Document [address] [phone] Provider, Generic Social History Tobacco [...] on filedocumented in this encounter Care Teams Client Relations Associate Relationship Specialty Start Date End Date Corrina Cm MD PCP - General Internal Medicine 07/31/15 10/02/24 Corrina Cm MD [address] [place] [address] PCP - C[employer]a Commercial Attributed 06/03/20 06/02/23 Corrina Cm MD [address] [place] [address] PCP - United Commercial Attributed 04/02/19 05/02/20 Corrina Cm MD [address] [place] [address] PCP - [place] Commercial Attributed 10/01/24 documented as of this encounter
--- OUTSIDE RECORDS SUMMARY | 2025-02-14 12:33 | XMS_ITS | Clinical Summary ---
Author Organization [facility] Address [address] [place] [address] Phone Care Team Providers Care Bmet Name Role Phone Nestor Hatch ACAD[employer]IC REGISTRAR Primary Care Provider Allergies No known active allergies Medications sertraline [...] up to 5 days. 10 tablet Active Additional Information Patient not taking.Reported on 11/30/2024 esomeprazole (NexIUM) [address] capsule Take 1 capsule (40 mg total) by mouth 1 (one) time each day before breakfast. Do not open capsule. 90 each 025 Active Active Problems Problem Noted Date Diagnosed Date Diastasis of muscle 01/18/2019 Umbilical hernia without obstruction and without gangrene 01/18/2019 Small bowel obstruction (CMS/HCC V24, CMS/HCC V2 8) 12/23/2018 Anxiety 08/07/2015 Encounters Date Type Department Care Team Description 01/11/2025 Telephone Gastroenterology [facility] [address] [phone] Darya Denton DO 12/26/2024 Telephone Gastroenterology [facility] [address] [phone] Darya Denton DO 12/25/2024 8:35 AM EDT Anesthesia Event [facility] Endoscopy [address] [place] [address] Cari Davenport MD Georgette, Nathaniel, CRNA 12/25/2024 7:51 AM EDT - 12/25/2024 11:59 PM EDT Hospital Encounter [facility] Endoscopy [address] [place] [address] Darya Denton DO Georgette, Nathaniel, CRNA Freeman, Katharine O, MD Upper abdominal pain; Diastasis recti Discharge Disposition: Home or Self Care 12/21/2024 10:00 AM EDT Consult Gastroenterology [facility] [address] [phone] Darya Denton DO Upper abdominal pain; Diastasis recti 12/20/2024 4:16 PM EDT - 12/20/2024 4:36 PM EDT Emergency [facility] Emergency [address] [place] [address] Evangelista Mclain MD Gastroesophageal reflux disease, unspecified whether esophagitis present (Primary Dx) Discharge Disposition: Home or Self Care 12/19/2024 Telephone [facility] [address] [phone] KanRosanne ramírez [place] 12/18/2024 6:22 PM EDT - 12/18/2024 10:28 PM EDT [facility] Emergency [address] [place] [phone] Discharge Disposition: Left Against Medical Advice 12/14/[address] [address] KanRosanne ramírez [place] 11/30/2024 11:45 AM EDT Consult [address] [phone] Laz Marie MD Upper abdominal pain (Primary Dx); Diastasis recti 11/25/2024 6:09 PM EDT - 11/25/2024 6:40 PM EDT [facility] Emergency [address] [place] [phone] Ventral hernia without obstruction or gangrene (Primary Dx) Discharge Disposition: Home or Self Care 11/15/2024 2:24 PM EDT - 11/15/2024 3:26 PM EDT [facility] Emergency [address] [place] [phone] Gerard Garcia MD Encounter for medical screening examination (Primary Dx); Abdominal pain, unspecified abdominal location Discharge Disposition: Home or Self Care from Last 3 Months Immunizations Immunization Administration Dates Next Due Influenza Quadrivalent, with [...] rocedure: CIRCUMCISION; Surgeon: Boyd Samuel MD; Location: [facility] MAIN OPERATING ROOM; Service: Urology; Laterality: N/A; COLONOSCOPY ESOPHAGOGASTRODUODENOSCOPY Medical History Medical History Date Comments Anxiety DX:Anxiety GERD (gastroesophageal reflux disease) Family History Medical History Relation Name Comments Breast cancer Neg Hx Prostate cancer Neg Hx Social History Tobacco Use Types Packs/Day Years Used Date Smoking Tobacco: Never Smokeless Tobacco: Never Alcohol Use Standard Drinks/Week Comments Yes 0 (1 standard drink = 0.6 oz pur e alcohol) weekends Interpersonal Safety Answer Date Record ed Physical Abuse Unrecognized value 12/25/2024 Verbal Abuse Unrecognized value 12/25/2024 Sex and Gender Information Value Date Recorded Sex Assigned at Male 12/21/2024 2:02 PM EDT Legal Sex Male 9:22 PM EST Gender Identity Male 12/21/2024 2:02 PM EDT Sexual Orientation Straight 12/25/2024 7: 48 AM EDT Obstetrics History Last Filed Vital Signs Vital Sign Reading Time Taken Comments Blood Pressure 131/81 12/25/2024 9:06 AM EDT Pulse 56 12/25/2024 9:06 AM EDT Temperature 36.2 C (97.2 F) 12/25/2024 8:46 AM EDT Respiratory Rate 16 12/25/2024 9:06 AM EDT Oxygen Saturation 98% 12/25/2024 9:06 AM EDT Inhaled Oxygen Concentration - - Weight 88 kg (194 lb) 12/21/2024 9:53 AM EDT Height 175.3 cm (5' 9 ) 12/21/2024 9:53 AM EDT Body Mass Index 28.65 12/21/2024 9:53 AM EDT Plan of Treatment Health Maintenance Due Date Last Done Comments Pneumococcal Vaccine: 50+ Years (1 of 1 - PCV) 07/18/2013 HIV Screening 04/10/2022 Hepatitis C Screening 04/10/2022 Social Influencers of Health Screening 04/10/2022 Depression Screening 05/03/2024 COVID-19 Vaccine ( season) 2025 08/09/2020 Influenza Vaccine (#1) 2025 , 03/23/2018, 02/16/2018, Additional history exists Cholesterol Screening (Lipid Panel) 09/11/2027 09/10/2022 Colorectal Cancer Screening: Colonoscopy 01/25/2029 01/25/2019 DTaP,Tdap,and Td Vaccines (3 - Td or [...] Procedure Name Priority Date/Time Associated Diagnosis Comments EGD Routine 12/25/2024 8:45 AM EDT Upper abdominal pain Diastasis recti TISSUE EXAM Routine 12/25/2024 8:41 AM EDT Upper abdominal pain Diastasis recti CBC WITH AUTO DIFFERENTIAL STAT 12/18/2024 7:23 PM EDT LIPASE STAT 12/18/2024 7:23 PM EDT COMPREHENSIVE METABOLIC PANEL STAT 12/18/2024 7:23 PM EDT CBC AND DIFFERENTIAL STAT 12/18/2024 7:23 PM EDT CBC WITH AUTO DIFFERENTIAL STAT 11/15/2024 12:45 PM EDT COMPREHENSIVE METABOLIC PANEL STAT 11/15/2024 12:45 PM EDT CBC AND DIFFERENTIAL STAT 11/15/2024 12:45 PM EDT LIPID PANEL Routine 09/10/2022 from Last 3 Months or Most Recently Relevant to Health Maintenance Results * EGD Anesthesia - MAC; [facility] ENDOSCOPY (12/25/2024 8:45 AM EDT) Anatomical Region Laterality Modality Endoscopy 12/25/2024 8:35 AM EDT Impressions 12/25/2024 8:48 AM EDT - Normal stomach. Biopsied. - Duodenal erosions without bleeding. Biopsied. Recommendation: - Discharge patient to home. - Resume previous diet. - Continue present medications. - Await pathology results. Narrative 12/25/2024 8:48 AM EDT [facility] GI Patient Name: Angelito Rabago Procedure Date: 12/25/2024 8:35 AM Date of : 1965 Age: 59 Gender: Male Note Status: Finalized Attending MD: Darya Denton DO, [id number] Procedure Date No Time: 12/25/2024 Procedure: Upper GI endoscopy Indications: Epigastric abdominal pain, Heartburn Providers: Darya Denton DO Referring MD: Darya Denton DO Medicines: Monitored Anesthesia Care Complications: No immediate complications. Estimated blood loss: Minimal. Estimated Blood Loss: Estimated blood loss was minimal. Procedure: Pre-Anesthesia Assessment: - - Prior to the procedure, a History and Physical was performed, and patient medications and allergies were reviewed. The patient is competent. The risks and benefits of the procedure and the sedation options and risks were discussed with the patient. All questions were answered and informed consent was obtained. Patient identification and proposed procedure were verified by the physician, the nurse, the anesthesiologist, the fruit sprayer and the career guidance technician in the pre-procedure area in the endoscopy suite. Mental Status Examination: alert and oriented. Airway Examination: normal oropharyngeal airway and neck mobility. Respiratory Examination: clear to auscultation. CV Examination: normal. Prophylactic Antibiotics: The patient does not require prophylactic antibiotics. Prior Anticoagulants: The patient has taken no anticoagulant or antiplatelet agents. ASA Grade Assessment: II - A patient with mild systemic disease. After reviewing the risks and benefits, the patient was deemed in satisfactory condition to undergo the procedure. The anesthesia plan was to use monitored anesthesia care (MAC). Immediately prior to administration of medications, the patient was re-assessed for adequacy to receive sedatives. The heart rate, respiratory rate, oxygen saturations, blood pressure, adequacy of pulmonary ventilation, and response to care were monitored throughout the procedure. The physical status of the patient was re-assessed after the procedure. After obtaining informed consent, the endoscope was passed under direct vision. Throughout the procedure, the patient's blood pressure, pulse, and oxygen saturations were monitored continuously. The Endoscope was introduced through the mouth, and advanced to the third part of duodenum. The upper GI endoscopy was accomplished without difficulty. The patient tolerated the procedure well. Findings: The Z-line was irregular and was found 38 cm from the incisors. Biopsies were taken with a cold forceps for histology. Estimated blood loss was minimal. The stomach was normal. Biopsies were taken with a cold forceps for histology. Estimated blood loss was minimal. A few localized erosions without bleeding were found in the duodenal bulb. Biopsies were taken with a cold forceps for histology. Estimated blood loss was minimal. Procedure Code(s): --- Professional --- 24396, Esophagogastroduodenoscopy, flexible, transoral; with biopsy, single or multiple Diagnosis Code(s): --- Professional --- K26.9, Duodenal ulcer, unspecified as acute or chronic, without hemorrhage or perforation R10.13, Epigastric pain R12, Heartburn CPT copyright 2020 [employer]. All rights reserved. The codes documented in this report are preliminary and upon iron melter review may be revised to meet current compliance requirements. DARYA Denton DO 12/25/2024 8:48:30 AM This report has been signed electronically.Darya Denton DO Number of Addenda: 0 Note Initiated On: 12/25/2024 8:35 AM Scope In: Scope Out: Endoscopy Department at [facility] - [address] [place] [phone] Procedure Note Darya Denton DO - 12/25/2024 [facility] GI Patient Name: Angelito Rabago Procedure Date: 12/25/2024 8:35 AM Date of : 1965 Age: 59 Gender: Male Note Status: Finalized Attending MD: Darya Denton DO, [id number] Procedure Date No Time: 12/25/2024 Procedure: Upper GI endoscopy Indications: Epigastric abdominal pain, Heartburn Providers: Darya Denton DO Referring MD: Darya Denton DO Medicines: Monitored Anesthesia Care Complications: No immediate complications. Estimated blood loss: Minimal. Estimated Blood Loss: Estimated blood loss was minimal. Procedure: Pre-Anesthesia Assessment: - - Prior to the procedure, a History and Physicalwas performed, and patient medications and allergieswere reviewed. The patient is competent. The risks and benefits of the procedure and the sedation optionsand risks were discussed with the patient. Allquestions were answered and informed consent was obtained. Patient identification and proposed procedure were verified by the physician, the nurse, the anesthesiologist, the fruit sprayer and thetechnician in the pre-procedure area in the endoscopy suite. Mental Status Examination: alert and oriented.Airway Examination: normal oropharyngeal airway and neck mobility. Respiratory Examination: clear to auscultation. CV Examination: normal. Prophylactic Antibiotics: The patient does not requireprophylactic antibiotics. Prior Anticoagulants: The patient has taken no anticoagulant or antiplatelet agents. ASA Grade Assessment: II - A patient with mild systemic disease. After reviewing the risks and benefits,the patient was deemed in satisfactory condition to undergo the procedure. The anesthesia plan was touse monitored anesthesia care (MAC). Immediately priorto administration of medications, the patient was re-assessed for adequacy to receive sedatives. The heart rate, respiratory rate, oxygen saturations, blood pressure, adequacy of pulmonary ventilation,and response to care were monitored throughout the procedure. The physical status of the patient was re-assessed after the procedure. After obtaining informed consent, the endoscope was passed under direct vision. Throughout theprocedure, the patient's blood pressure, pulse, and oxygen saturations were monitored continuously. TheEndoscope was introduced through the mouth, and advanced tothe third part of duodenum. The upper GI endoscopy was accomplished without difficulty. The patienttolerated the procedure well. Findings: The Z-line was irregular and was found 38 cm fromthe incisors. Biopsies were taken with a cold forcepsfor histology. Estimated blood loss was minimal. The stomach was normal. Biopsies were taken with a cold forceps for histology. Estimated blood losswas minimal. A few localized erosions without bleeding werefound in the duodenal bulb. Biopsies were taken with acold forceps for histology. Estimated blood loss was minimal. Procedure Code(s): --- Professional --- 27961, Esophagogastroduodenoscopy, flexible, transoral; with biopsy, single or multiple Diagnosis Code(s): --- Professional --- K26.9, Duodenal ulcer, unspecified as acute or chronic, without hemorrhage or perforation R10.13, Epigastric pain R12, Heartburn CPT copyright 2020 [employer]. All rights reserved. The codes documented in this report are preliminary and upon iron melter reviewmay be revised to meet current compliance requirements. DARYA Denton DO 12/25/2024 8:48:30 AM This report has been signed electronically.Darya Denton DO Number of Addenda: 0 Note Initiated On: 12/25/2024 8:35 AM Scope In: Scope Out: Endoscopy Department at [facility] - [address] [place] [phone] IMPRESSION: - Normal stomach. Biopsied. - Duodenal erosions without bleeding. Biopsied. Recommendation: - Discharge patient to home. - Resume previous diet. - Continue present medications. - Await pathology results. us Darya Denton DO GI~PROCEDURE ORDERABLES Final Re sult * Tissue exam (12/25/2024 8:41 AM EDT) Final Diagnosis A. Duodenum, bulb, biopsy: - Small bowel mucosa with prominent Sherrie glands. - Villous architecture is generally preserved and there is no increase in intraepithelial lymphocytes. B. Stomach, random sites, biopsy: - Gastric oxyntic-type mucosa with scant chronic inflammation. - No active gastritis and no intestinal metaplasia identified. - No Helicobacter pylori identified on hematoxylin and eosin-stained sections. C. Gastroesophageal junction, biopsy: - Esophageal squamous mucosa with scattered intraepithelial eosinophils (maximum of 15 intraepithelial eosinophils in a high-power field) and reactive epithelial changes including focal basilar hyperplasia and spongiosis. (See note.) - Gastric cardiac/fundic type mucosa with chronic inflammation. - No intestinal metaplasia and no dysplasia identified. Note: The morphologic changes are not entirely specific, but could be seen in the setting of esophageal reflux. If clinical concern for eosinophilic esophagitis exists, sampling of the proximal esophagus may be of value. Clinical and endoscopic correlation is recommended. 12/26/2024 11:16 AM T [facility] Gross Description A. Small Intestine, Duodenum, bulb biopsy: Labeled duodenum, duodenal . Received in formalin is a 0.3 cm irregular smith mucosal tissue fragment which is wrapped in paper and submitted in toto in one cassette, one piece, multiple levels on one slide. B. Stomach, random gastric biopsy: Labeled stomach random . Received in formalin are four irregular smith mucosal tissue fragments, ranging from 0.1 cm to 0.6 cm in greatest dimension, which are wrapped in paper and submitted in toto in one cassette, four pieces, multiple levels on one slide. C. Esophagus, G-E junction biopsy: Labeled esophagus GE junction . Received in formalin is a 0.3 cm irregular pink-white mucosal tissue fragment which is wrapped in paper and submitted in toto in one cassette, one piece, multiple levels on one slide. ERICA 12/26/2024 11:16 AM T [facility] Disclaimer Unless otherwise specified, all tissue is 10% NB formalin fixed and paraffin embedded. 12/26/2024 11:16 AM T [facility] Tissue Duodenal structure / Unknown 12/25/2024 8:41 AM EDT 12/25/2024 11:05 AM EDT Tissue specimen (specimen) Stomach structure / Unknown 12/25/2024 8:42 AM EDT 12/25/2024 11:05 AM EDT Tissue specimen (specimen) Esophageal structure / Unknown 12/25/2024 8:43 AM EDT 12/25/2024 11:05 AM EDT Darya Denton DO LAB PATHOLOGY ORDERABLES Final R esult [facility] [address] [place] [address], * CBC auto differential (12/18/2024 7:23 PM EDT) Only the most recent of2 resultswithin the time period is included. WBC 6.7 4.8 - 10.8 K/mcL LAB HEMETOLOGY METHOD 12/18/2024 7:40 PM EDT [facility] RBC 5.00 4.50 - 5.50 M/mcL LAB HEMETOLOGY METHOD 12/18/2024 7:40 PM EDT [facility] Hemoglobin 14.0 13.5 - 17.5 g/dL LAB HEMETOLOGY METHOD 12/18/2024 7:40 PM EDT [facility] Hematocrit 42.3 42.0 - 54.0 % LAB HEMETOLOGY METHOD 12/18/2024 7:40 PM EDT [facility] MCV 85.1 79.0 - 98.0 FL LAB HEMETOLOGY METHOD 12/18/2024 7:40 PM EDT [facility] MCH 28.2 27.0 - 32.0 pcg LAB HEMETOLOGY METHOD 12/18/2024 7:40 PM EDT [facility] MCHC 33.1 32.0 - 37.0 g/dL LAB HEMETOLOGY METHOD 12/18/2024 7:40 PM EDT [facility] RDW 12.7 11.0 - 15.0 % LAB HEMETOLOGY METHOD 12/18/2024 7:40 PM EDT [facility] Platelets 156 130 - 400 K/mcL LAB HEMETOLOGY METHOD 12/18/2024 7:40 PM EDT [facility] MPV 10.2 7.0 - 11.0 FL LAB HEMETOLOGY METHOD 12/18/2024 7:40 PM EDT [facility] NRBC 0.0 <1.0 % LAB HEMETOLOGY METHOD 12/18/2024 7:40 PM EDT [facility] NRBC Absolute 0.00 <0.10 K/mcL LAB HEMETOLOGY METHOD 12/18/2024 7:40 PM EDT [facility] Neutrophils Relative 66.7 % LAB HEMETOLOGY METHOD 12/18/2024 7:40 PM EDT [facility] Lymphocytes Relative 19.8 % LAB HEMETOLOGY METHOD 12/18/2024 7:40 PM EDT [facility] Monocytes Relative 7.7 % LAB HEMETOLOGY METHOD 12/18/2024 7:40 PM EDT [facility] Eosinophils Relative 5.1 % LAB HEMETOLOGY METHOD 12/18/2024 7:40 PM EDT [facility] Basophils Relative 0.6 % LAB HEMETOLOGY METHOD 12/18[facility]24 [facility] Immature Granulocytes Relative 0.1 % LAB HEMETOLOGY METHOD 12/18/2024 7:40 PM EDT [facility] Neutrophils Absolute 4.48 1.50 - 7.00 K/mcL LAB HEMETOLOGY METHOD 12/18/2024 7:40 PM EDT [facility] Lymphocytes Absolute 1.33 1.00 - 5.00 K/mcL LAB HEMETOLOGY METHOD 12/18/2024 7:40 PM EDT [facility] Monocytes Absolute 0.52 0.20 - 1.00 K/mcL LAB HEMETOLOGY METHOD 12/18/2024 7:40 PM EDT [facility] Eosinophils Absolute 0.34 0.00 - 0.50 K/mcL LAB HEMETOLOGY METHOD 12/18/2024 7:40 PM EDT [facility] Basophils Absolute 0.04 0.00 - 0.20 K/[facility] LAB HEMETOLOGY METHOD 12/18/2024 7:40 PM EDT [facility] Immature Granulocytes Absolute 0.01 0.00 - 0.03 K/[facility] LAB HEMETOLOGY METHOD 12/18/2024 7:40 PM EDT [facility] Blood Venous blood specimen / Unknown Venipuncture / Unknown 12/18/2024 7:23 PM EDT 12/18/2024 7:26 PM EDT Rafaela REYES LAB BLOOD ORDERABLES Fin al Result Performing Organization Address [facility]/ZIP Co de Phone Number [facility] [address] [place] [address], [place] [phone] * Lipase (12/18/2024 7:23 PM EDT) Lipase 19 13 - 75 unit/L LAB CHEMISTRY METHOD 12/18/2024 7:59 PM EDT [facility] Blood Venous blood specimen / Unknown Venipuncture / Unknown 12/18/2024 7:23 PM EDT 12/18/2024 7:26 PM EDT Rafaela REYES LAB BLOOD ORDERABLES Fin al Result [facility] [address] [place] [address], [place] [phone] * Comprehensive metabolic panel (12/18/2024 7:23 PM EDT) Only the most recent of2 resultswithin the time period is included. Sodium 136 133 - 145 mmol/L LAB CHEMISTRY METHOD 12/18/2024 7:59 PM EDT [facility] Potassium 3.9 3.5 - 5.5 mmol/L LAB CHEMISTRY METHOD 12/18/2024 7:59 PM [facility] Chloride 103 96 - 110 mmol/L LAB CHEMISTRY METHOD 12/18/2024 7:59 PM [facility] CO2 28 21 - 32 mmol/L LAB CHEMISTRY METHOD 12/18/2024 7:59 PM [facility] Anion Gap 5 3 - 11 LAB CHEMISTRY METHOD 12/18/2024 7:59 PM [facility] Glucose 86 70 - 100 mg/dL LAB CHEMISTRY METHOD 12/18/2024 7:59 PM [facility] BUN 17 5 - 25 mg/dL LAB CHEMISTRY METHOD 12/18/2024 7:59 PM [facility] Creatinine 0.84 0.70 - 1.30 mg/dL LAB CHEMISTRY METHOD 12/18/2024 7:59 PM [facility] eGFR 99 >=60 mL/min/1. 73m2 LAB CHEMISTRY METHOD 12/18/2024 7:59 PM [facility] Comment:Calculation based on the Chronic Kidney Disease Epidemiology Collaboration (CKD-EPI) equation refit without adjustment for race. BUN/Creatinine Ratio 20.2 LAB CHEMISTRY METHOD 12/18/2024 7:59 PM [facility] Calcium 9.5 8.5 - 10.5 mg/dL LAB CHEMISTRY METHOD 12/18/2024 7:59 PM [facility] AST (SGOT) 22 10 - 42 unit/L LAB CHEMISTRY METHOD 12/18/2024 7:59 PM [facility] ALT (SGPT) 29 10 - 60 unit/L LAB CHEMISTRY METHOD 12/18/2024 7:59 PM [facility] Alkaline Phosphatase 50 42 - 121 unit/L LAB CHEMISTRY METHOD 12/18/2024 7:59 PM [facility] Total Protein 7.0 6.0 - 8.0 g/dL LAB CHEMISTRY METHOD 12/18/2024 7:59 PM EDT [facility] Albumin 4.5 3.2 - 5.0 g/dL LAB CHEMISTRY METHOD 12/18/2024 7:59 PM EDT [facility] Total Bilirubin 0.6 0.0 - 1.4 mg/dL LAB CHEMISTRY METHOD 12/18/2024 7:59 PM EDT [facility] Blood Venous blood specimen / Unknown Venipuncture / Unknown 12/18/2024 7:23 PM EDT 12/18/2024 7:26 PM EDT Rafaela REYES LAB BLOOD ORDERABLES Fin al Result [facility] [address] [place] [address], * Lipid panel (09/10/2022) LDL/HDL Ratio 0 Comment:no interpretation Triglycerides 0 mg/dL Comment:no interpretation Cholesterol 0 mg/dL Comment:no interpretation HDL 0 mg/dL Comment:no interpretation LDL Cholesterol 0.0 mg/dL Comment:no interpretation Blood Venous blood specimen / Unknown Historical Provider LAB BLOOD ORDERABLES Teresa l Result from Last 3 Months or Most Recently Relevant to Health Maintenance Insurance [facility] [employer] Care Teams Bmet Relationship Specialty Start Date End Date Nestor Hatch FNP [address] [place] [address] PCP - General Family Medicine 11/25/24
--- OUTSIDE RECORDS SUMMARY | 2025-02-14 12:33 | XMS_ITS | Encounter Summary ---
Author Organization [facility] Address [address] [place] [address] Care Team Providers Care Master In Chancery Name Role Phone Corrina Cm MD Primary Care Provider + [phone] Corrina Cm MD Unavailable [phone] Corrina Cm MD Unavailable [phone] Encounter Details Date Type Department Care Team (Late st Contact Info) Description 05/06/2022 Scanned Document [facility] [place] [address] [place] [address] Odell Sorensen PA [address] [place] [address] Social History Tobacco Use Types Packs/Day Years [...] on filedocumented in this encounter Care Teams Master In Chancery Relationship Specialty Start Date End Date Corrina Cm MD PCP - General Internal Medicine 07/31/15 10/02/24 Corrina Cm MD [address] [place] [address] PCP - [employer] Attributed 06/03/20 06/02/23 Corrina Cm MD [address] [place] [address] PCP - [employer] Attributed 10/01/24 documented as of this encounter
== END 2025-02-14 12:14 | disposition home or self-care (01) ==
LOC: HO.HMCH 10:34
DX: K21.9 Gastro-esophageal reflux disease without esophagitis (principal); R35.0 Frequency of micturition; F41.9 Anxiety disorder, unspecified; M25.511 Pain in right shoulder; R10.9 Unspecified abdominal pain

== ENCOUNTER 2025-02-14 10:33 | Outpatient (REF) | payer OTHER, SELFPAY ==
--- NOTE | ~2025-02-14 | XR_ITS ---
EXAMINATION: XR SHOULDER, RIGHT CLINICAL INFORMATION: M25.511 - Pain in right shoulder COMPARISON: None available. TECHNIQUE: AP external rotation, Grashey, scapular Y, and axillary views of the right shoulder. FINDINGS: Bone alignment is normal. No fracture or dislocation. Mild degenerative changes at the glenohumeral joint. Soft tissues are unremarkable. XR/XR shoulder RT min 2V IMPRESSION: Mild degenerative changes at the glenohumeral joint. Electronically signed by: Phylicia Lzu MD 02/14/2025 12:59 PM EDT
== END 2025-02-14 10:34 | disposition home or self-care (01) ==
LOC: HO.XRAY 10:33
DX: M25.511 Pain in right shoulder (principal); F41.9 Anxiety disorder, unspecified; K21.9 Gastro-esophageal reflux disease without esophagitis; R35.0 Frequency of micturition; R10.9 Unspecified abdominal pain
CPT/HCPCS: 73030; 96127; 99202

== ENCOUNTER → 2025-02-14 12:43 | Outpatient (BNV) | payer OTHER, SELFPAY | PROVIDERS: Visit Provider Radiology Diagnostic Radiology | DX: M25.511 Pain in right shoulder (principal) | CPT/HCPCS: 73030 ==

== ENCOUNTER 2025-03-07 08:42 | Outpatient (REF) | payer OTHER, SELFPAY ==
--- OUTSIDE RECORDS SUMMARY | 2022-01-21 11:03 | XMS_ITS | Encounter Summary ---
Author Organization [facility] Address [address] [place] [address] Care Team Providers Care Rv Parts And Service Director Name Role Phone Corrina Cm MD Primary Care Provider [phone] Corrina Cm MD Unavailable [phone] Encounter Details Date Type Department Care Team (Late st Contact Info) Description 01/21/2022 12:03 PM EDT Hospital Encounter [facility] [address] [place] [phone] Social History Tobacco Use Types Packs/Day Years [...] on filedocumented in this encounter Care Teams Rv Parts And Service Director Relationship Specialty Start Date End Date Corrina Cm MD PCP - General Internal Medicine 07/31/15 10/02/24 Corrina Cm MD [address] [place] [address] PCP - [employer] Attributed 06/03/20 06/02/23 documented as of this encounter
--- NOTE | ~2025-03-07 | US_ITS ---
CLINICAL HISTORY: R10.9 - Unspecified abdominal pain US abdomen complete with Doppler Comparison: CR - XR KUB - 11/10/24 20:37 EDT Findings: The visualized pancreas, aorta, and inferior vena cava are unremarkable. Liver normal size and echotexture. Right lobe 14.5 cm length. No focal hepatic masses. Common duct 10.0 mm diameter. Physiologic distention of the gallbladder. No gallstones or sludge. No gallbladder wall thickening. No pericholecystic fluid. No sonographic Villa sign. Main portal vein antegrade. Right kidney normal size, 11.8 cm in length. Normal cortical width and echotexture. No solid or cystic renal masses. No nephrolithiasis. No hydronephrosis. Left kidney normal, 11.5 cm in length. Normal cortical width and echotexture. No solid or cystic renal masses. No nephrolithiasis. No hydronephrosis. Spleen measures 11.6 cm. No splenic masses. No ascites. No lymphadenopathy. Impression: 1. Dilated common bile duct. No gallstones or evidence of choledocholithiasis. MRCP may be helpful This document has been electronically signed by: Leif Grimaldo MD on 03/08/2025 09:48:26
--- OUTSIDE RECORDS SUMMARY | 2025-03-07 09:11 | XMS_ITS | Encounter Summary ---
Author Organization [facility] Address [address] [place] [address] Care Team Providers Care Bow Maker Gift Wrapping Name Role Phone Corrina Cm MD Primary Care Provider + [phone] Corrina Cm MD Unavailable +[phone] Corrina Cm MD Unavailable [phone] Encounter Details Date Type Department Care Team (Late st Contact Info) Description 05/06/2022 Scanned Document [facility] [place] [address] [place] [id number] Odell Sorensen PA [address] [place] [address] Social History Tobacco Use Types Packs/Day Years [...] on filedocumented in this encounter Care Teams Bow Maker Gift Wrapping Relationship Specialty Start Date End Date Corrina Cm MD PCP - General Internal Medicine 07/31/15 10/02/24 Corrina Cm MD [address] [place] [address] PCP - [employer] Commercial Attributed 06/03/20 06/02/23 Corrina Cm MD [address] [place] [address] PCP - [place] Commercial Attributed 10/01/24 documented as of this encounter
--- OUTSIDE RECORDS SUMMARY | 2025-03-07 09:11 | XMS_ITS | Encounter Summary ---
Author Organization [address] [address] Care Team Providers Care Care Transitions Manager Name Role Phone Corrina Cm MD Primary Care Provider + [phone] Corrina Cm MD Unavailable +[phone] Corrina Cm MD Unavailable [phone] Corrina Cm MD Unavailable [phone] Encounter Details Date Type Department Care Team (Late st Contact Info) Description 08/05/2017 Scanned Document [address] [phone] Provider, Generic Social History Tobacco [...] on filedocumented in this encounter Care Teams Care Transitions Manager Relationship Specialty Start Date End Date Corrina Cm MD PCP - General Internal Medicine 07/31/15 10/02/24 Corrina Cm MD [address] [place] [address] PCP - [employer] Commercial Attributed 06/03/20 06/02/23 Corrina Cm MD [address] [place] [address] PCP - [employer] Commercial Attributed 04/02/19 05/02/20 Corrina Cm MD [address] [place] [address] PCP - [place] Commercial Attributed 10/01/24 documented as of this encounter
--- OUTSIDE RECORDS SUMMARY | 2025-03-07 09:11 | XMS_ITS | Encounter Summary ---
Author Organization [facility] Address [address] [place] [address] Care Team Providers Care Car Ferry Captain Name Role Phone Corrina Cm MD Primary Care Provider + [phone] Corrina Cm MD Unavailable +[phone] Corrina Cm MD Unavailable [phone] Encounter Details Date Type Department Care Team (Late st Contact Info) Description 06/12/2020 Scanned Document [address] [phone] Provider, Generic Social History Tobacco Use Types [...] on filedocumented in this encounter Care Teams Car Ferry Captain Relationship Specialty Start Date End Date Corrina Cm MD PCP - General Internal Medicine 07/31/15 10/02/24 Corrina Cm MD [address] [place] [address] [address] [place] [address] PCP - [employer] Commercial Attributed 06/03/20 06/02/23 Corrina Cm MD [address] [place] [address] PCP - [place] Commercial Attributed 10/01/24 documented as of this encounter
--- OUTSIDE RECORDS SUMMARY | 2025-03-07 09:11 | XMS_ITS | Encounter Summary ---
Author Organization [address] [address] Care Team Providers Care Contamination Consultant Name Role Phone Corrina Cm MD Primary Care Provider + [phone] Corrina Cm MD Unavailable +[phone] Corrina Cm MD Unavailable [phone] Corrina Cm MD Unavailable [phone] Encounter Details Date Type Department Care Team (Late st Contact Info) Description 01/25/2019 Scanned Document [address] [place] [phone] Gastroenterology, Scan Social History Tobacco Use [...] PATHOLOGY GENERAL (01/25/2019) 01/25/2019 us Scan Gastroenterology [facility] HX PATH PROCEDURES Horacio vanessa Result - Final documented in this encounter Visit Diagnoses Not on filedocumented in this encounter Care Teams Contamination Consultant Relationship Specialty Start Date End Date Corrina Cm MD PCP - General Internal Medicine 07/31/15 10/02/24 Corrina Cm MD [address] [place] [address] PCP - [employer] Commercial Attributed 06/03/20 06/02/23 Corrina Cm MD [address] [place] [address] PCP - [employer] Commercial Attributed 04/02/19 05/02/20 Corrina Cm MD [address] [place] [address] PCP - [place] Commercial Attributed 10/01/24 documented as of this encounter
--- OUTSIDE RECORDS SUMMARY | 2025-03-07 09:11 | XMS_ITS | Encounter Summary ---
Author Organization [address] [address] Care Team Providers Care Technical Operations Specialist Name Role Phone Corrina Cm MD Primary Care Provider + [phone] Corrina Cm MD Unavailable [phone] Corrina Cm MD Unavailable [phone] Corrina Cm MD Unavailable [phone] Encounter Details Date Type Department Care Team (Late st Contact Info) Description 04/06/2020 Scanned Document [address] [place] [phone] Provider, Generic Social History Tobacco Use [...] on filedocumented in this encounter Care Teams Technical Operations Specialist Relationship Specialty Start Date End Date Corrina Cm MD PCP - General Internal Medicine 07/31/15 10/02/24 Corrina Cm MD [address] [place] [address] PCP - [employer] Commercial Attributed 06/03/20 06/02/23 Corrina Cm MD [address] [place] [address] PCP - [employer] Commercial Attributed 04/02/19 05/02/20 Corrina Cm MD [address] [place] [address] PCP - [place] Commercial Attributed 10/01/24 documented as of this encounter
--- OUTSIDE RECORDS SUMMARY | 2025-03-07 09:11 | XMS_ITS | Encounter Summary ---
Author Organization [facility] Address [address] [place] [address] Care Team Providers Care Sorting And Folding Supervisor Name Role Phone Corrina Cm MD Primary Care Provider + [phone] Corrina Cm MD Unavailable +[phone] Corrina Cm MD Unavailable [phone] Corrina Cm MD Unavailable [phone] Encounter Details Date Type Department Care Team (Late st Contact Info) Description 06/10/2017 Scanned Document [address] [place] [phone] Corrina Cm MD 100 [facility] [address] [place] [address] Social History Tobacco Use Types Packs/Day Years [...] on filedocumented in this encounter Care Teams Sorting And Folding Supervisor Relationship Specialty Start Date End Date Corrina Cm MD PCP - General Internal Medicine 07/31/15 10/02/24 Corrina Cm MD [address] [place] [address] PCP - [employer] Commercial Attributed 06/03/20 06/02/23 Corrina Cm MD [address] [place] [address] PCP - [employer] Commercial Attributed 04/02/19 05/02/20 Corrina Cm MD [address] [place] [address] PCP - [place] Commercial Attributed 10/01/24 documented as of this encounter
--- OUTSIDE RECORDS SUMMARY | 2025-03-07 09:11 | XMS_ITS | Encounter Summary ---
Author Organization [facility] Address [address] [place] [address] Care Team Providers Care Office Equipment Mechanic Name Role Phone Corrina Cm MD Primary Care Provider + [phone] Corrina Cm MD Unavailable +[phone] Corrina Cm MD Unavailable [phone] Corrina Cm MD Unavailable [phone] Encounter Details Date Type Department Care Team (Late st Contact Info) Description 03/11/2019 Scanned Document [address] [phone] General Internal Medicine, Scan Social [...] on filedocumented in this encounter Care Teams Office Equipment Mechanic Relationship Specialty Start Date End Date Corrina Cm MD PCP - General Internal Medicine 07/31/15 10/02/24 Corrina Cm MD [address] [place] [address] PCP - [employer] Commercial Attributed 06/03/20 06/02/23 Corrina Cm MD [address] [place] [address] PCP - [employer] Commercial Attributed 04/02/19 05/02/20 Corrina Cm MD [address] [place] [address] PCP - [place] Commercial Attributed 10/01/24 documented as of this encounter
--- OUTSIDE RECORDS SUMMARY | 2025-03-07 09:11 | XMS_ITS | Encounter Summary ---
Author Organization [address] [address] Care Team Providers Care Stranding Machine Operator Name Role Phone Corrina Cm MD Primary Care Provider Corrina Cm MD Unavailable [phone] Corrina Cm MD Unavailable [phone] Encounter Details Date Type Department Care Team (Late st Contact Info) Description 03/30/2021 Scanned Document [address] [phone] Provider, Generic Social History Tobacco [...] on filedocumented in this encounter Care Teams Stranding Machine Operator Relationship Specialty Start Date End Date Corrina Cm MD PCP - General Internal Medicine 07/31/15 10/02/24 Corrina Cm MD [address] [place] [address] PCP - [employer] Commercial Attributed 06/03/20 06/02/23 Corrina Cm MD [address] [place] [address] PCP - [place] Commercial Attributed 10/01/24 documented as of this encounter
--- OUTSIDE RECORDS SUMMARY | 2025-03-07 09:11 | XMS_ITS | Encounter Summary ---
Author Organization [address] [address] Care Team Providers Care Skylights Assembler Name Role Phone Corrina Cm MD Primary Care Provider + [phone] Corrina Cm MD Unavailable [phone] Corrina Cm MD Unavailable [phone] Corrina Cm MD Unavailable [phone] Encounter Details Date Type Department Care Team (Late st Contact Info) Description 08/06/2017 Scanned Document [address] [phone] Provider, Generic Social History Tobacco [...] on filedocumented in this encounter Care Teams Skylights Assembler Relationship Specialty Start Date End Date Corrina Cm MD PCP - General Internal Medicine 07/31/15 10/02/24 Corrina Cm MD [address] [place] [address] PCP - [employer] Commercial Attributed 06/03/20 06/02/23 Corrina Cm MD [address] [place] [address] PCP - [employer] Commercial Attributed 04/02/19 05/02/20 Corrina Cm MD [address] [place] [address] PCP - [place] Commercial Attributed 10/01/24 documented as of this encounter
--- OUTSIDE RECORDS SUMMARY | 2025-03-07 09:11 | XMS_ITS | Encounter Summary ---
Author Organization [facility] Address [address] [place] [address] Care Team Providers Care Medical Transcription Radiology Name Role Phone Corrina Cm MD Primary Care Provider + [phone] Corrina Cm MD Unavailable +[phone] Corrina Cm MD Unavailable [phone] Corrina Cm MD Unavailable [phone] Encounter Details Date Type Department Care Team (Late st Contact Info) Description 05/07/2016 Scanned Document [facility] 100 [facility] [address] [place] [phone] Corrina Cm MD 100 [facility] [address] [place] [address] Social History Tobacco Use Types Packs/Day Years [...] on filedocumented in this encounter Care Teams Medical Transcription Radiology Relationship Specialty Start Date End Date Corrina Cm MD PCP - General Internal Medicine 07/31/15 10/02/24 Corrina Cm MD [address] [place] [address] PCP - [employer] Commercial Attributed 06/03/20 06/02/23 Corrina Cm MD [address] [place] [address] PCP - [employer] Commercial Attributed 04/02/19 05/02/20 Corrina Cm MD [address] [place] [address] PCP - [place] Commercial Attributed 10/01/24 documented as of this encounter
--- OUTSIDE RECORDS SUMMARY | 2025-03-07 09:11 | XMS_ITS | Encounter Summary ---
Author Organization [facility] Address [address] [place] [address] Care Team Providers Care Catering Truck Driver Name Role Phone Corrina Cm MD Primary Care Provider + [phone] Corrina Cm MD Unavailable [phone] Corrina Cm MD Unavailable [phone] Corrina Cm MD Unavailable [phone] Encounter Details Date Type Department Care Team (Late st Contact Info) Description 09/18/2015 Scanned Document [address] [phone] Provider, Generic Social History Tobacco [...] on filedocumented in this encounter Care Teams Catering Truck Driver Relationship Specialty Start Date End Date Corrina Cm MD PCP - General Internal Medicine 07/31/15 10/02/24 Corrina Cm MD [address] [place] [address] PCP - [employer] Commercial Attributed 06/03/20 06/02/23 Corrina Cm MD [address] [place] [address] PCP - [employer] Commercial Attributed 04/02/19 05/02/20 Corrina Cm MD [address] [place] [address] PCP - [place] Commercial Attributed 10/01/24 documented as of this encounter
--- OUTSIDE RECORDS SUMMARY | 2025-03-07 09:11 | XMS_ITS | Encounter Summary ---
Author Organization [facility] Address [address] [place] [address] Care Team Providers Care White Goods Appliance Tech Name Role Phone Corrina Cm MD Primary Care Provider + [phone] Corrina Cm MD Unavailable [phone] Corrina Cm MD Unavailable [phone] Corrina Cm MD Unavailable [phone] Encounter Details Date Type Department Care Team (Late st Contact Info) Description 12/23/2018 Scanned Document [address] [phone] General Surgery, Scan Social History [...] on filedocumented in this encounter Care Teams White Goods Appliance Tech Relationship Specialty Start Date End Date Corrina Cm MD PCP - General Internal Medicine 07/31/15 10/02/24 Corrina Cm MD [address] [place] [address] PCP - [employer] Commercial Attributed 06/03/20 06/02/23 Corrina Cm MD [address] [place] [address] PCP - [employer] Commercial Attributed 04/02/19 05/02/20 Corrina Cm MD [address] [place] [address] PCP - [place] Commercial Attributed 10/01/24 documented as of this encounter
--- OUTSIDE RECORDS SUMMARY | 2025-03-07 09:11 | XMS_ITS | Encounter Summary ---
Author Organization [address] [address] Care Team Providers Care Contract Associate Name Role Phone Corrina Cm MD Primary Care Provider Corrina Cm MD Unavailable [phone] Corrina Cm MD Unavailable [phone] Corrina Cm MD Unavailable [phone] Encounter Details Date Type Department Care Team (Late st Contact Info) Description 05/23/2017 Scanned Document [address] [phone] Provider, Generic Social History Tobacco [...] on filedocumented in this encounter Care Teams Contract Associate Relationship Specialty Start Date End Date Corrina Cm MD PCP - General Internal Medicine 07/31/15 10/02/24 Corrina Cm MD [address] [place] [address] PCP - [employer] Commercial Attributed 06/03/20 06/02/23 Corrina Cm MD [address] [place] [address] PCP - [employer] Commercial Attributed 04/02/19 05/02/20 Corrina Cm MD [address] [place] [address] PCP - [place] Commercial Attributed 10/01/24 documented as of this encounter
--- OUTSIDE RECORDS SUMMARY | 2025-03-07 09:11 | XMS_ITS | Encounter Summary ---
Author Organization [address] [address] Care Team Providers Care Spinner Box Name Role Phone Corrina Cm MD Primary Care Provider + [phone] Corrina Cm MD Unavailable [phone] Corrina Cm MD Unavailable [phone] Corrina Cm MD Unavailable [phone] Encounter Details Date Type Department Care Team (Late st Contact Info) Description 12/23/2018 Scanned Document [address] [phone] Provider, Generic Social History Tobacco [...] on filedocumented in this encounter Care Teams Spinner Box Relationship Specialty Start Date End Date Corrina Cm MD PCP - General Internal Medicine 07/31/15 10/02/24 Corrina Cm MD [address] [place] [address] PCP - [employer] Commercial Attributed 06/03/20 06/02/23 Corrina Cm MD [address] [place] [address] PCP - [employer] Commercial Attributed 04/02/19 05/02/20 Corrina Cm MD [address] [place] [address] PCP - [place] Commercial Attributed 10/01/24 documented as of this encounter
--- OUTSIDE RECORDS SUMMARY | 2025-03-07 09:11 | XMS_ITS | Encounter Summary ---
Author Organization [facility] Address [address] [place] [address] Care Team Providers Care Job Superintendent Name Role Phone Corrina Cm MD Primary Care Provider Corrina Cm MD Unavailable +[phone] Corrina Cm MD Unavailable [phone] Corrina Cm MD Unavailable [phone] Encounter Details Date Type Department Care Team (Late st Contact Info) Description 11/20/2015 Scanned Document [address] [phone] Provider, Generic Social History Tobacco [...] on filedocumented in this encounter Care Teams Job Superintendent Relationship Specialty Start Date End Date Corrina Cm MD PCP - General Internal Medicine 07/31/15 10/02/24 Corrina Cm MD [address] [place] [address] PCP - [employer] Commercial Attributed 06/03/20 06/02/23 Corrina Cm MD [address] [place] [address] PCP - [employer] Commercial Attributed 04/02/19 05/02/20 Corrina Cm MD [address] [place] [address] PCP - [place] Commercial Attributed 10/01/24 documented as of this encounter
--- OUTSIDE RECORDS SUMMARY | 2025-03-07 09:11 | XMS_ITS | Encounter Summary ---
Author Organization [facility] Address [address] [place] [address] Care Team Providers Care Boring Mill Set Up Operator Name Role Phone Corrina Cm MD Primary Care Provider Corrina Cm MD Unavailable [phone] Corrina Cm MD Unavailable [phone] Corrina Cm MD Unavailable [phone] Encounter Details Date Type Department Care Team (Late st Contact Info) Description 09/04/2016 Scanned Document [address] [phone] Provider, Generic Social History Tobacco [...] on filedocumented in this encounter Care Teams Boring Mill Set Up Operator Relationship Specialty Start Date End Date Corrina Cm MD PCP - General Internal Medicine 07/31/15 10/02/24 Corrina Cm MD [address] [place] [address] PCP - [employer] Commercial Attributed 06/03/20 06/02/23 Corrina Cm MD [address] [place] [address] PCP - [employer] Commercial Attributed 04/02/19 05/02/20 Corrina Cm MD [address] [place] [address] PCP - [place] Commercial Attributed 10/01/24 documented as of this encounter
--- OUTSIDE RECORDS SUMMARY | 2025-03-07 09:11 | XMS_ITS | Encounter Summary ---
Author Organization [facility] Address [address] [place] [address] Care Team Providers Care Director Consumer Name Role Phone Corrina Cm MD Primary Care Provider +[phone] Corrina Cm MD Unavailable [phone] Corrina Cm MD Unavailable [phone] Encounter Details Date Type Department Care Team (Late Contact Info) Description 06/05/2022 Scanned Document [facility] PRIMARY CARE SCAN Corrina Cm MD [address] [place], [place] [id number] Social History Tobacco Use Types Packs/Day Years [...] on filedocumented in this encounter Care Teams Director Consumer Relationship Specialty Start Date End Date Corrina mC MD PCP - General Internal Medicine 07/31/15 10/02/24 Corrina Cm MD [address] [place] [address] PCP - [employer] Commercial Attributed 06/03/20 06/02/23 Corrina Cm MD [address] [place], [place] [address] PCP - [place] Commercial Attributed 10/01/24 documented as of this encounter
--- OUTSIDE RECORDS SUMMARY | 2025-03-07 09:11 | XMS_ITS | Clinical Summary ---
Author Organization [facility] Address [address] [place] [address] Care Team Providers Care Catcher Plug Name Role Phone Corrina Cm MD Primary Care Provider [phone] Allergies No known active allergies Medications Medication [...] Advance Directives For more information, please contact: [phone] Latest Code Status on File Code Status Date Activated Date Inactivated Comments Full Code 12/23/2018 8:53 PM 12/28/2018 3:35 PM This code status was ascertained in the following way: discussion with patient . Care Teams Catcher Plug Relationship Specialty Start Date End Date Corrina Cm MD [address] [place] [address] PCP - General Internal Medicine 09/04/16
--- OUTSIDE RECORDS SUMMARY | 2025-03-07 09:11 | XMS_ITS | Clinical Summary ---
Author Organization [facility] Address [address] [place] [address] Phone Care Team Providers Care Master Ocean Name Role Phone Nestor Hatch GENERAL LABOR Primary Care Provider Allergies No known active allergies Medications sertraline (ZOLOFT) 50 mg tablet Take 1 tablet (50 mg total) by mouth. Active methylPREDNIS olone (MEDROL DOSPAK) 4 mg tablet See administration instructions. Active meloxicam (MOBIC) 15 mg tablet Take 1 tablet (15 mg total) by mouth 1 (one) time each day. Active clotrimazole- betamethasone (LOTRISONE) 1-0.05 % cream Apply topically. Active cetirizine-ps eudoephedrine (ZyrTEC-D) 5-120 mg per 12 hr tablet Take 1 tablet by mouth 2 (two) times a day. Active doxycycline (MONODOX) 100 mg capsule Take 1 capsule (100 mg total) by mouth 2 (two) times a day. Take with at least 8 ounces (large glass) of water, do not lie down for 30 minutes after Active fluticasone propionate (FLONASE) 50 mcg/actuation nasal spray Administer 1 spray into each nostril 1 (one) time each day. Shake gently. Before first use, prime pump. After use, clean tip and replace cap. Active cyclobenzapri ne (FLEXERIL) 10 mg tablet Take 1 tablet [...] Do not open capsule. 90 each 025 2024 Active fluconazole (DIFLUCAN) 150 mg tablet Take 1 tablet (150 mg total) by mouth 1 (one) time. 2024 Discontinued(D uplicate order) ciprofloxacin (CIPRO) 500 mg tablet Take 1 tablet (500 mg total) by mouth 2 (two) times a day for 5 days. 10 each 2024 Discontinued metroNIDAZOLE (FLAGYL) 500 mg tablet Take 1 tablet (500 mg total) by mouth every 8 (eight) hours for 5 days. Do not use mouth wash or consume alcohol until 48 hours after last dose 15 each 2024 Discontinued acetaminophen (TYLENOL) 325 mg tablet Take 2 tablets (650 mg total) by mouth every 6 (six) hours if needed for mild pain for up to 5 days. 40 each 025 2024 Discontinued ciprofloxacin (CIPRO) 500 mg tablet Take 1 tablet (500 mg total) by mouth 2 (two) times a day for 5 days. 10 each 2024 metroNIDAZOLE (FLAGYL) 500 mg tablet Take 1 tablet (500 mg total) by mouth every 8 (eight) hours for 5 days. Do not use mouth wash or consume alcohol until 48 hours after last dose 15 each 2024 acetaminophen (TYLENOL) 325 mg tablet Take 2 tablets (650 mg total) by mouth every 6 (six) hours if needed for mild pain for up to 5 days. 40 each 2024 Active Problems Problem Noted Date Diagnosed Date Diastasis of muscle 01/18/2019 Umbilical hernia without obstruction and without gangrene 01/18/2019 Small bowel obstruction (CMS/HCC V24, CMS/HCC V2 8) 12/23/2018 Anxiety 08/07/2015 Encounters Date Type Department Care Team Description 03/06/2025 Telephone Gastroenterology - [place] [address] [facility] [address] [place] [phone] Darya Denton DO 02/23/2025 7:25 AM EDT - 02/23/2025 11:50 AM EDT Emergency [facility] Emergency [address] [place] [address] Azar Galo MD Abdominal pain, unspecified abdominal location (Primary Dx) Discharge Disposition: Home or Self Care 01/11/2025 Telephone Gastroenterology - [place] [address] [address] Darya Denton DO 12/26/2024 Telephone Gastroenterology - [place] [address] [facility] [address] [place] [phone] Darya Denton DO 12/25/2024 8:35 AM EDT Anesthesia Event [facility] Endoscopy [address] [place] [address] Cari Davenport MD Georgette, Nathaniel, CRNA 12/25/2024 7:51 AM EDT - 12/25/2024 11:59 PM EDT Hospital Encounter [facility] Endoscopy [address] [place] [address] Darya Denton DO Georgette, Nathaniel, CRNA Freeman, Katharine O, MD Upper abdominal pain; Diastasis recti Discharge Disposition: Home or Self Care 12/21/2024 10:00 AM EDT Consult Gastroenterology - [place] [address] [facility] [address] [place] [phone] Darya Denton DO Upper abdominal pain; Diastasis recti 12/20/2024 4:16 PM EDT - 12/20/2024 4:36 PM EDT Emergency [facility] Emergency [address] [place] [address] Evangelista Mclain MD Gastroesophageal reflux disease, unspecified whether esophagitis present (Primary Dx) Discharge Disposition: Home or Self Care 12/19/2024 Telephone General Surgery - [place] 175 [facility] [address] [place] [address] Rosanne Kan MA 12/18/2024 6:22 PM EDT - 12/18/2024 10:28 PM EDT Emergency [facility] Emergency [address] [place] [phone] Discharge Disposition: Left Against Medical Advice 12/14/2024 Telephone General Surgery - [place] 175 [facility] [address] [place] [address] Rosanne Kan MA from Last 3 Months Immunizations Immunization Administration [...] rocedure: CIRCUMCISION; Surgeon: Boyd Samuel MD; Location: [facility] MAIN OPERATING ROOM; Service: Urology; Laterality: N/A; [...] Sign Reading Time Taken Comments Blood Pressure 170/84 02/23/2025 7:22 AM EDT Pulse 58 02/23/2025 7:22 AM EDT Temperature 36.4 C (97.5 F) 02/23/2025 7:22 AM EDT Respiratory Rate 18 02/23/2025 7:22 AM EDT Oxygen Saturation 100% 02/23/2025 7:22 AM EDT Inhaled Oxygen Concentration - - Weight 87.1 kg (192 lb) 02/23/2025 7:22 AM EDT Height 175.3 cm (5' 9 ) 02/23/2025 7:22 AM EDT Body Mass Index 28.35 02/23/2025 7:22 AM EDT Plan of Treatment Health Maintenance Due Date Last Done Comments Pneumococcal Vaccine: 50+ Years (1 of 1 - PCV) 07/18/2013 HIV Screening 04/10/2022 Hepatitis C Screening 04/10/2022 Social Influencers of Health Screening 04/10/2022 Depression Screening 05/03/2024 COVID-19 Vaccine (2 - season) 2025 08/09/2020 Influenza Vaccine (#1) 2025 [...] Procedure Name Priority Date/Time Associated Diagnosis Comments ECG ANNOTATED 02/26/2025 CT ABDOMEN PELVIS W CONTRAST STAT 02/23/2025 10:05 AM EDT XR CHEST 2 VIEWS STAT 02/23/2025 9:51 AM EDT URINALYSIS WITH REFLEX MICROSCOPIC STAT 02/23/2025 9:01 AM EDT URINALYSIS WITH REFLEX MICROSCOPIC STAT 02/23/2025 9:01 AM EDT ECG 12-LEAD STAT 02/23/2025 7:38 AM EDT TROPONIN I HIGH SENSITIVITY STAT 02/23/2025 7:36 AM EDT CBC WITH AUTO DIFFERENTIAL STAT 02/23/2025 7:34 AM EDT LIPASE STAT 02/23/2025 7:34 AM EDT COMPREHENSIVE METABOLIC PANEL STAT 02/23/2025 7:34 AM EDT CBC AND DIFFERENTIAL STAT 02/23/2025 7:34 AM EDT EGD Routine 12/25/2024 8:45 AM EDT Upper abdominal pain Diastasis recti TISSUE EXAM Routine 12/25/2024 8:41 AM EDT Upper abdominal pain Diastasis recti CBC WITH AUTO DIFFERENTIAL STAT 12/18/2024 7:23 PM EDT LIPASE STAT 12/18/2024 7:23 PM EDT COMPREHENSIVE METABOLIC PANEL STAT 12/18/2024 7:23 PM EDT CBC AND DIFFERENTIAL STAT 12/18/2024 7:23 PM EDT LIPID PANEL Routine 09/10/2022 from Last 3 Months or Most Recently Relevant to Health Maintenance Results * ECG-Annotated (02/26/2025) us Provider Onbase MD ECG ORDERABLES Final Result * CT Abdomen Pelvis w Contrast (02/23/2025 10:05 AM EDT) Anatomical Region Laterality Modality Body Computed Tomogra phy 02/23/2025 10:1 9 AM EDT Impressions 02/23/2025 10:30 AM EDT 1. Mildly dilated jejunal loops, with findings suggestive of stasis of intraluminal contents and mild associated mesenteric edema. The loops gradually taper to normal caliber in the left lower quadrant; there is no focal transition point to suggest a high-grade obstruction. 2. Extensive colonic diverticulosis. Mild stranding in the fat adjacent to the sigmoid and descending colon suggesting mild diverticulitis. 3. Small amount of pelvic ascites. -------- FINAL REPORT -------- Dictated By: Erick Downey Dictated Date: 02/23/2025 10:19 ET Assigned Physician: Erick Downey Reviewed and Electronically Signed By: Erick Downey Signed Date: 02/23/2025 10:30 ET Workstation ID: [id number] Transcribed By: Self Edit Transcribed Date: 02/23/2025 10:19 ET Narrative 02/23/2025 10:30 AM EDT PROCEDURE: Contrast enhanced CT of the abdomen and pelvis. HISTORY: Abdominal pain, acute, no prior medical history. COMPARISON: None. TECHNIQUE: Contrast-enhanced CT of the abdomen and pelvis with coronal and sagittal reformats. IV contrast dose: 90 mL ISOVUE-370. Dose length product: 1098 mGy-cm. FINDINGS: Lung bases: Mild dependent atelectasis. Cardiac: Normal heart size. Mild coronary artery calcification. Liver: Small area of focal fatty infiltration along the intersegmental fissure. Portal veins are patent. Biliary: Normal gallbladder and biliary tree. Pancreas: Normal. Spleen: Normal. Adrenal glands: Normal. Kidneys: Normal. Normal appearance of the ureters. Retroperitoneum: No mass or adenopathy. Abdominal vasculature: Normal. Bowel/mesentery: The jejunal loops are mildly dilated, measuring up to 3.4 cm, with fecalized intraluminal contents and a few air-fluid levels suggesting stasis. The loops taper gradually to normal caliber in the left lower quadrant; there is no focal transition point. Mild edema in the small bowel mesentery. No adenopathy. No mass. Extensive distal prominent colonic diverticulosis. Mild fat stranding adjacent to the sigmoid and descending colon which could represent low-grade diverticulitis. Appendix is normal. Small amount of pelvic ascites. Abdominal wall: Herniorrhaphy tacks in the left lower quadrant. Small fat-containing paraumbilical hernia. Pelvic nodes: No adenopathy. Pelvic organs: Dystrophic calcifications of the prostate. Bones: Degenerative changes of the spine. Mild degenerative irregularity of the hips, SI joints, and pubic symphysis. Procedure Note Erick Downey MD - 02/23/2025 PROCEDURE: Contrast enhanced CT of the abdomen and pelvis. HISTORY: Abdominal pain, acute, no prior medical history. COMPARISON: None. TECHNIQUE: Contrast-enhanced CT of the abdomen and pelvis with coronal andsagittal reformats. IV contrast dose: 90 mL ISOVUE-370. Dose length product: 1098 mGy-cm. FINDINGS: Lung bases: Mild dependent atelectasis. Cardiac: Normal heart size. Mild coronary artery calcification. Liver: Small area of focal fatty infiltration along the intersegmentalfissure. Portal veins are patent. Biliary: Normal gallbladder and biliary tree. Pancreas: Normal. Spleen: Normal. Adrenal glands: Normal. Kidneys: Normal. Normal appearance of the ureters. Retroperitoneum: No mass or adenopathy. Abdominal vasculature: Normal. Bowel/mesentery: The jejunal loops are mildly dilated, measuring up to 3.4cm, with fecalized intraluminal contents and a few air-fluid levelssuggesting stasis. The loops taper gradually to normal caliber in theleft lower quadrant; there is no focal transition point. Mild edema inthe small bowel mesentery. No adenopathy. No mass. Extensive distalprominent colonic diverticulosis. Mild fat stranding adjacent to thesigmoid and descending colon which could represent low-gradediverticulitis. Appendix is normal. Small amount of pelvic ascites. Abdominal wall: Herniorrhaphy tacks in the left lower quadrant. Smallfat- containing paraumbilical hernia. Pelvic nodes: No adenopathy. Pelvic organs: Dystrophic calcifications of the prostate. Bones: Degenerative changes of the spine. Mild degenerative irregularityof the hips, SI joints, and pubic symphysis. IMPRESSION: 1. Mildly dilated jejunal loops, with findings suggestive of stasis ofintraluminal contents and mild associated mesenteric edema. The loopsgradually taper to normal caliber in the left lower quadrant; there is nofocal transition point to suggest a high-grade obstruction. 2. Extensive colonic diverticulosis. Mild stranding in the fat adjacentto the sigmoid and descending colon suggesting mild diverticulitis. 3. Small amount of pelvic ascites. -------- FINAL REPORT -------- Dictated By: Erick Downey Dictated Date: 02/23/2025 10:19 ET Assigned Physician: Erick Downey Reviewed and Electronically Signed By: Erick Downey Signed Date: 02/23/2025 10:30 ET Workstation ID: [id number] Transcribed By: Self Edit Transcribed Date: 02/23/2025 10:19 ET us Azar Galo MD IMG CT PROCEDURES Final Re sult * XR Chest 2 Views (02/23/2025 9:51 AM EDT) Anatomical Region Laterality Modality Body Radiographic Em ging 02/23/2025 10:0 7 AM EDT Impressions 02/23/2025 10:10 AM EDT Normal chest radiographs. -------- FINAL REPORT -------- Dictated By: Erick Downey Dictated Date: 02/23/2025 10:07 ET Assigned Physician: Erick Downey Reviewed and Electronically Signed By: Erick Downey Signed Date: 02/23/2025 10:10 ET Workstation ID: [id number] Transcribed By: Self Edit Transcribed Date: 02/23/2025 10:07 ET Narrative 02/23/2025 10:10 AM EDT PROCEDURE: PA and lateral radiographs of the chest. HISTORY: cough. COMPARISON: 07/08/2024. FINDINGS: The heart, mediastinum, lungs, pleural spaces, and bony thorax are normal. Procedure Note Erick Downey MD - 02/23/2025 PROCEDURE: PA and lateral radiographs of the chest. HISTORY: cough. COMPARISON: 07/08/2024. FINDINGS: The heart, mediastinum, lungs, pleural spaces, and bony thorax arenormal. IMPRESSION: Normal chest radiographs. -------- FINAL REPORT -------- Dictated By: Erick Downey Dictated Date: 02/23/2025 10:07 ET Assigned Physician: Erick Downey Reviewed and Electronically Signed By: Erick Downey Signed Date: 02/23/2025 10:10 ET Workstation ID: [id number] Transcribed By: Self Edit Transcribed Date: 02/23/2025 10:07 ET Azar Galo MD IMG XR PROCEDURES Final Re sult * (ABNORMAL) Urinalysis with reflex microscopic (02/23/2025 9:01 AM EDT) [facility] Specific [place] Urine 1.022 1.003 - 1.030 LAB URINALYSIS - AUTOMATED METHOD 02/23/2025 10:13 AM EDT [facility] pH, Urine 7.0 5.0 - 8.0 pH LAB URINALYSIS - AUTOMATED METHOD 02/23/2025 10:13 AM T [facility] Leukocytes, Urine Trace(A) Negative LAB URINALYSIS - AUTOMATED METHOD 02/23/2025 10:13 AM T [facility] Nitrite, Urine Negative Negative LAB URINALYSIS - AUTOMATED METHOD 02/23/2025 10:13 AM [facility] Protein, Urine Trace <=Trace mg/dL LAB URINALYSIS - AUTOMATED METHOD 02/23/2025 10:13 AM [facility] Glucose, Urine Negative Negative mg/dL LAB URINALYSIS - AUTOMATED METHOD 02/23/2025 10:13 AM [facility] Ketones, Urine 15(A) Negative mg/dL LAB URINALYSIS - AUTOMATED METHOD 02/23/2025 10:13 AM [facility] Urobilinogen, Urine 0.2 0.2 - 1.0 mg/dL LAB URINALYSIS - AUTOMATED METHOD 02/23/2025 10:13 AM [facility] Bilirubin, Urine Negative Negative LAB URINALYSIS - AUTOMATED METHOD 02/23/2025 10:13 AM [facility] Blood, Urine Negative Negative LAB URINALYSIS - AUTOMATED METHOD 02/23/2025 10:13 AM [facility] RBC, Urine 1.3 0 - 4 /HPF LAB URINALYSIS - AUTOMATED METHOD 02/23/2025 10:13 AM [facility] WBC, Urine 0.7 0 - 4 /HPF LAB URINALYSIS - AUTOMATED METHOD 02/23/2025 10:13 AM [facility] Squamous Epithelial, Urine 6 0 - 60 /LPF LAB URINALYSIS - AUTOMATED METHOD 02/23/2025 10:13 AM [facility] Bacteria, Urine Negative Negative /HPF LAB URINALYSIS - AUTOMATED METHOD 02/23/2025 10:13 AM [facility] Hyaline Casts, Urine 0.4 0 - 3 /LPF LAB URINALYSIS - AUTOMATED METHOD 02/23/2025 10:13 AM [facility] Urine Urine specimen obtained by clean catch procedure / Unknown Non-blood Collection / Unknown 02/23/2025 9:01 AM EDT 02/23/2025 9:48 AM EDT us Azar Galo MD LAB URINE ORDERABLES Final Result Performing Organization Address [facility]/ZIP Co de Phone Number [facility] [address] [place] [address], [place] [phone] * ECG 12 lead (02/23/2025 7:38 AM EDT) [facility] Ventricular Rate ECG 62 BPM GEMUSE Atrial Rate 62 BPM GEMUSE P-R Interval 152 ms GEMUSE QRS Duration 88 ms GEMUSE Q-T Interval 392 ms GEMUSE QTc 397 ms GEMUSE P Wave [place] 2 degrees GEMUSE R [place] 43 degrees GEMUSE T [place] 24 degrees GEMUSE ECG Interpretation Normal sinus rhythm Normal ECG When compared with ECG of 08-JUL-2024 22:08, No significant change was found Confirmed by Myrna ZENG JAMES ([id number]) on 02/23/2025 6:30:35 PM GEMUSE 02/23/2025 7:38 AM EDT 02/23/2025 6:30 PM EDT Azar Galo MD ECG ORDERABLES Final Resu lt Performing Organization Address [facility] de Phone Number GEMUSE * Troponin I high sensitivity (02/23/2025 7:36 AM EDT) [facility] High Sensitivity Troponin I 4 <=79 ng/L LAB CHEMISTRY METHOD 02/23/2025 8:16 AM EDT [facility] Blood Venous blood specimen / Unknown Venipuncture / Unknown 02/23/2025 7:36 AM EDT 02/23/2025 7:44 AM EDT Narrative [facility] - 02/23/2025 8:16 AM EDT High levels of biotin in samples may falsely decrease hsTroponin values. Use caution when interpreting hsTroponin results in patients taking biotin who exhibit renal impairment (eGFR <60) or in patients taking more than 20 mg/day of biotin. us Azar Galo MD LAB BLOOD ORDERABLES Final Result [facility] [address] [place] [address], [place] [phone] * (ABNORMAL) CBC auto differential (02/23/2025 7:34 AM EDT) Only the most recent of2 resultswithin the time period is included. WBC 8.6 4.8 - 10.8 K/mcL LAB HEMETOLOGY METHOD 02/23/2025 7:49 AM EDT [facility] RBC 5.60(H) 4.50 - 5.50 M/mcL LAB HEMETOLOGY METHOD [facility] Hemoglobin 15.8 13.5 - 17.5 g/dL LAB HEMETOLOGY METHOD 02/23/2025 7[facility] Hematocrit 47.5 42.0 - 54.0 % LAB HEMETOLOGY METHOD 02/23/2025 7:49 [facility] MCV 84.5 79.0 - 98.0 FL LAB HEMETOLOGY METHOD 02/23/2025 7:49 [facility] MCH 28.1 27.0 - 32.0 pcg LAB HEMETOLOGY METHOD 02/23/2025 7:49 AM EDT [facility] MCHC 33.3 32.0 - 37.0 g/dL LAB HEMETOLOGY METHOD 02/23/2025 7:49 AM [facility] RDW 12.5 11.0 - 15.0 % LAB HEMETOLOGY METHOD 02/23/2025 7:49 AM [facility] Platelets 204 130 - 400 K/mcL LAB HEMETOLOGY METHOD 02/23/2025 7:[facility] MPV 10.5 7.0 - 11.0 FL LAB HEMETOLOGY METHOD 02/23/2025 7:49 AM [facility] NRBC 0.0 <1.0 % LAB HEMETOLOGY METHOD 02/23/2025 7:49 AM [facility] NRBC Absolute 0.00 <0.10 K/mcL LAB HEMETOLOGY METHOD 02/23/2025 7:49 AM [facility] Neutrophils Relative 81.3 % LAB HEMETOLOGY METHOD 02/23/2025 7:49 AM [facility] Lymphocytes Relative 10.3 % LAB HEMETOLOGY METHOD 02/23/2025 7:49 AM [facility] Monocytes Relative 5.7 % LAB HEMETOLOGY METHOD 02/23/2025 7:49 AM [facility] Eosinophils Relative 2.3 % LAB HEMETOLOGY METHOD 02/23/2025 7:49 AM [facility] Basophils Relative 0.3 % LAB HEMETOLOGY METHOD 02/23/2025 7:49 AM [facility] Immature Granulocytes Relative 0.1 % LAB HEMETOLOGY METHOD 02/23/2025 7:49 AM [facility] Neutrophils Absolute 6.98 1.50 - 7.00 K/mcL LAB HEMETOLOGY METHOD 02/23/2025 7:49 AM [facility] Lymphocytes Absolute 0.89(L) 1.00 - 5.00 K/mcL LAB HEMETOLOGY METHOD 02/23/2025 7:49 AM [facility] Monocytes Absolute 0.49 0.20 - 1.00 K/mcL LAB HEMETOLOGY METHOD 02/23/2025 7:49 AM [facility] Eosinophils Absolute 0.20 0.00 - 0.50 K/mcL LAB HEMETOLOGY METHOD 02/23/2025 7:49 AM EDT [facility] Basophils Absolute 0.03 0.00 - 0.20 K/mcL LAB HEMETOLOGY METHOD 02/23/2025 7:49 AM EDT [facility] Immature Granulocytes Absolute 0.01 0.00 - 0.03 K/[facility] LAB HEMETOLOGY METHOD 02/23/2025 7:49 AM EDT [facility] Blood Venous blood specimen / Unknown Venipuncture / Unknown 02/23/2025 7:34 AM EDT 02/23/2025 7:44 AM EDT us Azar Galo MD LAB BLOOD ORDERABLES Final Result Performing Organization Address [facility]/ZIP Co de Phone Number [facility] [address] [place] [address], [place] [phone] * Lipase (02/23/2025 7:34 AM EDT) Only the most recent of2 resultswithin the time period is included. Lipase 24 13 - 75 unit/L LAB CHEMISTRY METHOD 02/23/2025 8:14 AM EDT [facility] Blood Venous blood specimen / Unknown Venipuncture / Unknown 02/23/2025 7:34 AM EDT 02/23/2025 7:44 AM EDT us Azar Galo MD LAB BLOOD ORDERABLES Final Result Performing Organization Address City/[facility]/ZIP Co de Phone Number [facility] [address] [place] [address], [place] [phone] * (ABNORMAL) Comprehensive metabolic panel (02/23/2025 7:34 AM EDT) Only the most recent of2 resultswithin the time period is included. Sodium 135 133 - 145 mmol/L LAB CHEMISTRY METHOD 02/23/2025 8:18 AM EDT [facility] Potassium 4.4 3.5 - 5.5 mmol/L LAB CHEMISTRY METHOD 02/23/2025 8:18 AM [facility] Chloride 99 96 - 110 mmol/L LAB CHEMISTRY METHOD 02/23/2025 8:18 AM [facility] CO2 31 21 - 32 mmol/L LAB CHEMISTRY METHOD 02/23/2025 8:18 AM [facility] Anion Gap 5 3 - 11 LAB CHEMISTRY METHOD 02/23/2025 8:18 AM [facility] Glucose 122(H) 70 - 100 mg/dL LAB CHEMISTRY METHOD 02/23/2025 8:18 AM [facility] BUN 12 5 - 25 mg/dL LAB CHEMISTRY METHOD 02/23/2025 8:18 AM [facility] Creatinine 0.90 0.70 - 1.30 mg/dL LAB CHEMISTRY METHOD 02/23/2025 8:18 AM [facility] eGFR 97 >=60 mL/min/1. 73m2 LAB CHEMISTRY METHOD 02/23/2025 8:18 AM [facility] Comment:Calculation based on the Chronic Kidney Disease Epidemiology Collaboration (CKD-EPI) equation refit without adjustment for race. BUN/Creatinine Ratio 13.3 LAB CHEMISTRY METHOD 02/23/2025 8:18 AM [facility] Calcium 9.6 8.5 - 10.5 mg/dL LAB CHEMISTRY METHOD 02/23/2025 8:18 AM [facility] AST (SGOT) 24 10 - 42 unit/L LAB CHEMISTRY METHOD 02/23/2025 8:18 AM [facility] ALT (SGPT) 35 10 - 60 unit/L LAB CHEMISTRY METHOD 02/23/2025 8:18 AM [facility] Alkaline Phosphatase 65 42 - 121 unit/L LAB CHEMISTRY METHOD 02/23/2025 8:18 AM [facility] Total Protein 7.9 6.0 - 8.0 g/dL LAB CHEMISTRY METHOD 02/23/2025 8:18 AM EDT [facility] Albumin 4.4 3.2 - 5.0 g/dL LAB CHEMISTRY METHOD 02/23/2025 8:18 AM EDT [facility] Total Bilirubin 1.1 0.0 - 1.4 mg/dL LAB CHEMISTRY METHOD 02/23/2025 8:18 AM EDT [facility] Blood Venous blood specimen / Unknown Venipuncture / Unknown 02/23/2025 7:34 AM EDT 02/23/2025 7:44 AM EDT Azar Galo MD LAB BLOOD ORDERABLES Final Result [facility] [address] [place] [address], * EGD Anesthesia - MAC; [facility] ENDOSCOPY (12/25/2024 8:45 AM EDT) Anatomical Region Laterality Modality Endoscopy 12/25/2024 8:35 AM EDT Impressions 12/25/2024 8:48 AM EDT - Normal stomach. Biopsied. - Duodenal erosions without bleeding. Biopsied. Recommendation: - Discharge patient to home. - Resume previous diet. - Continue present medications. - Await pathology results. Narrative 12/25/2024 8:48 AM EDT [facility] GI Patient Name: Angelito Rabago Procedure Date: 12/25/2024 8:35 AM Date of : 1965 Age: 59 Gender: Male Note Status: Finalized Attending MD: Darya Denton DO, [id number] Procedure Date No Time: 12/25/2024 Procedure: Upper [...] the physician, the nurse, the anesthesiologist, the campus wellness coordinator and the food service technician in the pre-procedure area in the [...] was minimal. Procedure Code(s): --- Professional --- 43979, Esophagogastroduodenoscopy, flexible, transoral; with biopsy, single or multiple Diagnosis Code(s): --- Professional --- K26.9, Duodenal ulcer, unspecified as acute or chronic, without hemorrhage or perforation R10.13, Epigastric pain R12, Heartburn CPT copyright [employer] Association. All rights reserved. The codes documented in this report are preliminary and upon director of strategic initiatives review may be revised to meet current compliance requirements. DARYA Denton DO 12/25/2024 8:48:30 AM This report has been signed electronically.Darya Denton DO Number of Addenda: 0 Note Initiated On: 12/25/2024 8:35 AM Scope In: Scope Out: Endoscopy Department at [facility] - [address] [place] [id number] Procedure Note Darya Denton DO - 12/25/2024 [facility] GI Patient Name: Angelito Rabago Procedure Date: 12/25/2024 8:35 AM Date of : 1965 Age: 59 Gender: Male Note Status: Finalized Attending MD: Darya Denton DO, [id number] Procedure Date No Time: 12/25/2024 Procedure: Upper [...] the physician, the nurse, the anesthesiologist, the campus wellness coordinator and thetechnician in the pre-procedure area in [...] was minimal. Procedure Code(s): --- Professional --- 75277, Esophagogastroduodenoscopy, flexible, transoral; with biopsy, single or multiple Diagnosis Code(s): --- Professional --- K26.9, Duodenal ulcer, unspecified as acute or chronic, without hemorrhage or perforation R10.13, Epigastric pain R12, Heartburn CPT copyright 2020 [employer]. All rights reserved. The codes documented in this report are preliminary and upon director of strategic initiatives reviewmay be revised to meet current compliance requirements. DARYA Denton DO 12/25/2024 8:48:30 AM This report has been signed electronically.Darya Denton DO Number of Addenda: 0 Note Initiated On: 12/25/2024 8:35 AM Scope In: Scope Out: Endoscopy Department at [facility] - [address] [place] [phone] IMPRESSION: - Normal stomach. Biopsied. - Duodenal [...] endoscopic correlation is recommended. 12/26/2024 11:16 AM [facility] Gross Description A. Small Intestine, Duodenum, [...] on one slide. ERICA 12/26/2024 11:16 AM [facility] Disclaimer Unless otherwise specified, all tissue is 10% NB formalin fixed and paraffin embedded. 12/26/2024 11:16 AM [facility] Tissue Duodenal structure / Unknown 12/25/2024 8:41 AM EDT 12/25/2024 11:05 AM EDT Tissue specimen (specimen) Stomach structure / Unknown 12/25/2024 8:42 AM EDT 12/25/2024 11:05 AM EDT Tissue specimen (specimen) Esophageal structure / Unknown 12/25/2024 8:43 AM EDT 12/25/2024 11:05 AM EDT Darya Denton DO LAB PATHOLOGY ORDERABLES Final R esult [facility] ([facility]) [facility] [address] [place] [address], [place] [phone] * Lipid panel (09/10/2022) LDL/HDL Ratio 0 Comment:no interpretation Triglycerides 0 mg/dL Comment:no interpretation Cholesterol 0 mg/dL Comment:no interpretation HDL 0 mg/dL Comment:no interpretation LDL Cholesterol 0.0 mg/dL Comment:no interpretation Blood Venous blood specimen / Unknown Historical Provider LAB BLOOD ORDERABLES Teresa l Result from Last 3 Months or Most Recently Relevant to Health Maintenance Insurance [facility] [place] [address] Care Teams Master Ocean Relationship Specialty Start Date End Date Nestor Hatch FNP [address] [place] [address] PCP - General Family Medicine 11/25/24
--- OUTSIDE RECORDS SUMMARY | 2025-03-07 09:11 | XMS_ITS | Encounter Summary ---
Author Organization [address] [address] Care Team Providers Care Gun Repair Clerk Name Role Phone Corrina Cm MD Primary Care Provider Corrina Cm MD Unavailable [phone] Corrina Cm MD Unavailable [phone] Corrina Cm MD Unavailable [phone] Encounter Details Date Type Department Care Team (Late st Contact Info) Description 05/29/2017 Scanned Document [address] [phone] Provider, Generic Social History Tobacco [...] on filedocumented in this encounter Care Teams Gun Repair Clerk Relationship Specialty Start Date End Date Corrina Cm MD PCP - General Internal Medicine 07/31/15 10/02/24 Corrina Cm MD [address] [place] [address] PCP - [employer] Commercial Attributed 06/03/20 06/02/23 Corrina Cm MD [address] [place] [address] PCP - [employer] Commercial Attributed 04/02/19 05/02/20 Corrina Cm MD [address] [place] [address] PCP - [place] Commercial Attributed 10/01/24 documented as of this encounter
--- OUTSIDE RECORDS SUMMARY | 2025-03-07 09:11 | XMS_ITS | Encounter Summary ---
Author Organization [address] [address] Care Team Providers Care Abstract Checker Name Role Phone Corrina Cm MD Primary Care Provider + [phone] Corrina Cm MD Unavailable [phone] Corrina Cm MD Unavailable [phone] Corrina Cm MD Unavailable [phone] Encounter Details Date Type Department Care Team (Late st Contact Info) Description 06/20/2017 Scanned Document [address] [phone] Provider, Generic Social History [...] on filedocumented in this encounter Care Teams Abstract Checker Relationship Specialty Start Date End Date Corrina Cm MD PCP - General Internal Medicine 07/31/15 10/02/24 Corrina Cm MD [address] [place] [address] PCP - [employer] Commercial Attributed 06/03/20 06/02/23 Corrina Cm MD [address] [place] [address] PCP - [employer] Commercial Attributed 04/02/19 05/02/20 Corrina Cm MD [address] [place] [address] PCP - [place] Commercial Attributed 10/01/24 documented as of this encounter
--- OUTSIDE RECORDS SUMMARY | 2025-03-07 09:11 | XMS_ITS | Encounter Summary ---
Author Organization [address] [address] Care Team Providers Care Shift Leader Name Role Phone Corrina Cm MD Primary Care Provider + [phone] Corrina Cm MD Unavailable [phone] Corrina Cm MD Unavailable [phone] Encounter Details Date Type Department Care Team (Late st Contact Info) Description 01/06/2021 Scanned Document [address] [phone] Provider, Generic Social History Tobacco [...] on filedocumented in this encounter Care Teams Shift Leader Relationship Specialty Start Date End Date Corrina Cm MD PCP - General Internal Medicine 07/31/15 10/02/24 Corrina Cm MD [address] [place] [address] PCP - [employer] Commercial Attributed 06/03/20 06/02/23 Corrina Cm MD [address] [place] [address] PCP - [place] Commercial Attributed 10/01/24 documented as of this encounter
--- OUTSIDE RECORDS SUMMARY | 2025-03-07 09:11 | XMS_ITS | Encounter Summary ---
Author Organization [address] [address] Care Team Providers Care Publishing Specialist Name Role Phone Corrina Cm MD Primary Care Provider Corrina Cm MD Unavailable [phone] Corrina Cm MD Unavailable [phone] Encounter Details Date Type Department Care Team (Late st Contact Info) Description 05/30/2021 Scanned Document [address] [phone] Provider, Generic Social History Tobacco [...] on filedocumented in this encounter Care Teams Publishing Specialist Relationship Specialty Start Date End Date Corrina Cm MD PCP - General Internal Medicine 07/31/15 10/02/24 Corrina Cm MD [address] [place] [address] PCP - [employer] Commercial Attributed 06/03/20 06/02/23 Corrina Cm MD [address] [place] [address] PCP - [place] Commercial Attributed 10/01/24 documented as of this encounter
--- OUTSIDE RECORDS SUMMARY | 2025-03-07 09:11 | XMS_ITS | Clinical Summary ---
Author Organization [facility] Address [address] [place] [address] Care Team Providers Care Collections Officer Name Role Phone Corrina Cm MD Unavailable [phone] Allergies No known active allergies Medications No [...] topic Hepatitis C Virus Screening Discontinued Insurance [employer] INDIVIDUAL EXCHANGE PPO BLUE CROSS INDIVIDUAL EXCHANGE PPO Care Teams Collections Officer Relationship Specialty Start Date End Date Corrina Cm MD [address] [place] [address] PCP - [place] Commercial Attributed 10/01/24
--- OUTSIDE RECORDS SUMMARY | 2025-03-07 09:11 | XMS_ITS | Encounter Summary ---
Author Organization [facility] Address [address] [place] [address] Care Team Providers Care Furnace Repair Mechanic Name Role Phone Corrina Cm MD Primary Care Provider + [phone] Corrina Cm MD Unavailable [phone] Corrina Cm MD Unavailable [phone] Corrina Cm MD Unavailable [phone] Encounter Details Date Type Department Care Team (Late st Contact Info) Description 01/25/2019 Scanned Document [facility] 100 [facility] [address] [place] [phone] Corrina Cm MD 100 [facility] [address] [place] [address] Social History Tobacco Use Types Packs/Day Years [...] on filedocumented in this encounter Care Teams Furnace Repair Mechanic Relationship Specialty Start Date End Date Corrina Cm MD PCP - General Internal Medicine 07/31/15 10/02/24 Corrina Cm MD [address] [place] [address] PCP - [employer] Commercial Attributed 06/03/20 06/02/23 Corrina Cm MD [address] [place] [address] PCP - [employer] Commercial Attributed 04/02/19 05/02/20 Corrina Cm MD [address] [place] [address] PCP - [place] Commercial Attributed 10/01/24 documented as of this encounter
--- OUTSIDE RECORDS SUMMARY | 2025-03-07 09:11 | XMS_ITS | Encounter Summary ---
Author Organization [facility] Address [address] [place] [address] Care Team Providers Care Office Copy Selector Name Role Phone Nestor Hatch TELLO Primary Care Provider Encounter Details Date Type Department Care Team ([facility] st Contact Info) Description 03/06/2025 Telephone Gastroenterology - [place] [address] [place] [address] Robel Denton DO [address] [place] [address] Social History Tobacco Use Types Packs/Day Years [...] Orientation Straight 12/25/2024 7: 48 AM EDT documented as of this encounter Functional Status * Are you deaf or do you have serious difficulty hearing? Answer Date of Assessment Author No 07/08/2024 11:13 PM Elif Bone RN * Are you blind or do you have serious difficulty seeing, even when wearing glasses? Answer Date of Assessment Author No 07/08/2024 11:13 PM Elif Bone RN * Do you have serious difficulty walking or climbing stairs? Answer Date of Assessment Author No 07/08/2024 11:13 PM Elif Bone RN * Do you have serious difficulty dressing or bathing? Answer Date of Assessment Author No 07/08/2024 11:13 PM Elif Bone RN * Because of a physical, mental, or emotional condition, do you have serious difficulty doing errandsalone such as visiting the doctor? Answer Date of Assessment Author No 07/08/2024 11:13 PM Elif Bone RN documented as of this encounter Mental Status * Because of a physical, mental, or emotional condition, do you have serious difficulty concentrating, remembering, or making decisions? (5 years old or older) Answer Entry Date Author No 07/08/2024 11:13 PM Elif Bone RN documented in this encounter Progress Notes * Sarah Vaca - 03/06/2025 9:14 AM EST Patient called and stated he was recently seen in the ER here at [facility] on 02/23 and diagnosed with diverticulitis. He was just calling to make sure Dr. Denton was aware and if he would need to be seen in the office by him. Asked for a call back at documented in this encounter Plan of Treatment Not on file documented as of this encounter Visit Diagnoses Not on filedocumented in this encounter Care Teams Office Copy Selector Relationship Specialty Start Date End Date Nestor Hatch FNP [address] [place] [address] PCP - General Family Medicine 11/25/24 documented as of this encounter
--- OUTSIDE RECORDS SUMMARY | 2025-03-07 09:11 | XMS_ITS | Encounter Summary ---
Author Organization [facility] Address [address] [place] [address] Care Team Providers Care Rn Telemetry Name Role Phone Corrina Cm MD Primary Care Provider + [phone] Corrina Cm MD Unavailable [phone] Corrina Cm MD Unavailable [phone] Corrina Cm MD Unavailable [phone] Encounter Details Date Type Department Care Team (Late st Contact Info) Description 07/30/2015 Scanned Document [address] [place] [phone] Provider, Generic Social History Tobacco Use Types [...] on filedocumented in this encounter Care Teams Rn Telemetry Relationship Specialty Start Date End Date Corrina Cm MD PCP - General Internal Medicine 07/31/15 10/02/24 Corrina mC MD [address] [facility] [address] [place] [address] PCP - [employer] Commercial Attributed 06/03/20 06/02/23 Corrina Cm MD [address] [place] [address] PCP - [employer] Commercial Attributed 04/02/19 05/02/20 Corrina Cm MD [address] [place] [address] PCP - [place] Commercial Attributed 10/01/24 documented as of this encounter
== END 2025-03-07 08:43 | disposition home or self-care (01) ==
LOC: HO.US 08:42
DX: R10.9 Unspecified abdominal pain (principal)
CPT/HCPCS: 76700

== ENCOUNTER → 2025-03-07 08:44 | Outpatient (BNV) | payer OTHER, SELFPAY | PROVIDERS: Visit Provider Radiology Diagnostic Radiology | DX: K83.8 Other specified diseases of biliary tract (principal) | CPT/HCPCS: 76700 ==

== ENCOUNTER 2025-04-03 07:16 | Outpatient (REF) | payer OTHER, SELFPAY ==
--- OUTSIDE RECORDS SUMMARY | 2022-01-21 11:03 | XMS_ITS | Encounter Summary ---
Author Organization [facility] Address [address] [place] [address] Care Team Providers Care Manager Storage Name Role Phone Corrina Cm MD Primary Care Provider [phone] Corrina Cm MD Unavailable [phone] Encounter Details Date Type Department Care Team (Late st Contact Info) Description 01/21/2022 12:03 PM EDT Hospital Encounter [facility] [address] [place] [id number] Social History Tobacco Use Types Packs/Day Years Used Date Smoking Tobacco: Never Smokeless Tobacco: Never Alcohol Use Standard Drinks/Week Comments Yes 8 (1 standard drink = 0.6 oz pur e alcohol) weekends PHQ-2 Answer Date Recorded PHQ-2 Total Score 0 09/22/2023 Sex and Gender Information Value Date Recorded Sex Assigned at Not on file Legal Sex Male 9:08 AM EDT Gender Identity Not on file Sexual Orientation Not on file COVID-19 Exposure Response Date Recorded In the last 10 days, have yo u been in contact with someone who was confirmed or suspected to have Coronavirus/COVID-19? No / Unsure 09/16/2022 7:56 AM EDT documented as of this encounter Functional Status * Question Answer Date of Assessment Author Feeling nervous, anxious, or on edge 0 09/01 7:55 AM EDT Ankit Meadows MA Not being able to stop or co ntrol worrying 0 09/22/2023 7:55 AM EDT Ankit Meadows MA Worrying too much about diff erent things 1 09/22/2023 7:55 AM Ankit Manuel MA Trouble relaxing 0 09/22/2023 7:55 AM Ankit Oseguera MA Being so restless that it is hard to sit still 0 09/22/2023 7:55 AM Ankit Manuel MA Becoming easily annoyed or irritable 0 09/01 7:55 AM Ankit Manuel MA Feeling afraid as if somethi ng awful might happen 0 09/22/2023 7:55 AM Ankit Manuel MA * Over the past 2 weeks, how often have you been bothered by any of the following problems? Question Answer Date of Assessment Author Patient Health Questionnaire-2 Score 0 09/01 7:54 AM Ankit Manuel MA * Question Answer Date of Assessment Author Patient Health Questionnaire-9 Score 1 09/01 7:54 AM Ankit Manuel MA * Over the last 2 weeks, how often have you been bothered by any of the following problems? Question Answer Date of Assessment Author ELLIOT-7 Total Score 1 09/22/2023 7:55 AM Ankit Manuel MA * Question Answer Date of Assessment Author PHQ-2 Total Score 0 09/22/2023 7:54 AM Ankit Manuel MA Little interest or pleasure in doing things Not at all 09/22/2023 7:54 AM Karl Manuel MA Feeling down, depressed, or hopeless Not at all 09/22/2023 7:54 AM Ankit Manuel MA Trouble falling or staying asleep, or sleeping too much Not at all 09/22/2023 7:54 AM Ankit Manuel MA Feeling tired or having little energy Several days 09/22/2023 7:54 AM Ankit Manuel MA Poor appetite or overeating Not at all 09/22/2023 7:54 AM Ankit Manuel MA Feeling bad about yourself - or that you are a failure or have let yourself or your family down Not at all 09/22/2023 7:54 AM Ankit Manuel MA Trouble concentrating on things, such as reading the newspaper or watching television Not at all 09/22/2023 7:54 AM EDT Ankit Meadows MA Moving or speaking so slowly that other people could have noticed? Or the opposite - being so fidgety or restless that you have been moving around a lot more than usual. Not at all 09/22/2023 7:54 AM EDT Ankit Meadows MA Thoughts that you would be better off or hurting yourself in some way Not at all 09/22/2023 7:54 AM EDT Ankit Meadows MA How difficult have these problems made it for you to do your work, take care of things at home, or get along with other people? Not difficult at all 09/22/2023 7:54 AM EDT Ankit Meadows M A PHQ-9 Total Score 1 09/22/2023 7:54 AM EDT Ankit Meadows MA documented as of this encounter Plan of Treatment Not on file documented as of this encounter Procedures Procedure Name Priority Date/Time Associated Diagnosis Comments XR HAND 3+ VIEWS-LEFT Routine 01/21/2022 12:09 PM EDT Laceration of left index finger without foreign body without damage to nail, initial encounter documented in this encounter Results * XR Hand 3+ views-Left (01/21/2022 12:09 PM EDT) Anatomical Region Laterality Modality Hand Left Computed Radiogr aphy 01/21/2022 12:2 1 PM EDT Impressions 01/21/2022 12:21 PM EDT Impression: No acute osseous abnormality noted. Narrative 01/21/2022 12:21 PM EDT XR HAND 3+ VIEWS-LEFT: 01/21/2022 12:03 PM CLINICAL HISTORY: hand trauma Comparisons: None available. Technique: Frontal, lateral and oblique views Findings: There is no radiographic evidence for fracture. The joint spaces appear preserved. There is no dislocation. The soft tissues appear within normal limits. Procedure Note Meng Ledesma MD - 01/21/2022 XR HAND 3+ VIEWS-LEFT: 01/21/2022 12:03 PM CLINICAL HISTORY: hand trauma Comparisons: None available. Technique: Frontal, lateral and oblique views Findings: There is no radiographic evidence for fracture. The joint spaces appear preserved. There is no dislocation. The soft tissues appear within normal limits. IMPRESSION: Impression: No acute osseous abnormality noted. Gopal Olguin PA-C [facility] Final Result documented in this encounter Visit Diagnoses Not on filedocumented in this encounter Care Teams Manager Storage Relationship Specialty Start Date End Date Corrina Cm MD PCP - General Internal Medicine 07/31/15 10/02/24 Corrina Cm MD [address] [place] [address] PCP - [employer] Attributed 06/03/20 06/02/23 documented as of this encounter
--- OUTSIDE RECORDS SUMMARY | 2025-04-03 07:18 | XMS_ITS | Encounter Summary ---
Author Organization [facility] Address [address] [place] [address] Care Team Providers Care Satellite Dish Repairer Name Role Phone Corrina Cm MD Primary Care Provider + [phone] Corrina Cm MD Unavailable [phone] Corrina Cm MD Unavailable [phone] Corrina Cm MD Unavailable [phone] Encounter Details Date Type Department Care Team (Late st Contact Info) Description 12/23/2018 Scanned Document [address] [phone] General Surgery, Scan Social History [...] on filedocumented in this encounter Care Teams Satellite Dish Repairer Relationship Specialty Start Date End Date Corrina Cm MD PCP - General Internal Medicine 07/31/15 10/02/24 Corrina Cm MD [address] [place] [address] PCP - [employer] Commercial Attributed 06/03/20 06/02/23 Corrina Cm MD [address] [place] [address] PCP - [employer] Commercial Attributed 04/02/19 05/02/20 Corrina Cm MD [address] [place] [address] PCP - [place] Commercial Attributed 10/01/24 documented as of this encounter
--- OUTSIDE RECORDS SUMMARY | 2025-04-03 07:18 | XMS_ITS | Encounter Summary ---
Author Organization [address] [address] Care Team Providers Care Senior Product Engineer Name Role Phone Corrina Cm MD Primary Care Provider + [phone] Corrina Cm MD Unavailable [phone] Corrina Cm MD Unavailable [phone] Corrina Cm MD Unavailable [phone] Encounter Details Date Type Department Care Team (Late st Contact Info) Description 01/25/2019 Scanned Document [address] [place] [phone] Gastroenterology, Scan Social History Tobacco Use [...] PATHOLOGY GENERAL (01/25/2019) 01/25/2019 us Scan Gastroenterology [facility] HX PATH PROCEDURES Horacio vanessa Result - Final documented in this encounter Visit Diagnoses Not on filedocumented in this encounter Care Teams Senior Product Engineer Relationship Specialty Start Date End Date Corrina Cm MD PCP - General Internal Medicine 07/31/15 10/02/24 Corrina Cm MD [address] [place] [address] PCP - [employer] Commercial Attributed 06/03/20 06/02/23 Corrina Cm MD [address] [place] [address] PCP - [employer] Commercial Attributed 04/02/19 05/02/20 Corrina Cm MD [address] [place] [address] PCP - [place] Commercial Attributed 10/01/24 documented as of this encounter
--- OUTSIDE RECORDS SUMMARY | 2025-04-03 07:18 | XMS_ITS | Encounter Summary ---
Author Organization [facility] Address [address] [place] [address] Care Team Providers Care Muck Hauler Name Role Phone Corrina Cm MD Primary Care Provider + [phone] Corrina Cm MD Unavailable [phone] Corrina Cm MD Unavailable [phone] Encounter Details Date Type Department Care Team (Late st Contact Info) Description 05/06/2022 Scanned Document [facility] [place] [address] [place] [phone] Odell Sorensen PA [address] [place] [address] Social History Tobacco Use Types Packs/Day Years [...] on filedocumented in this encounter Care Teams Muck Hauler Relationship Specialty Start Date End Date Corrina Cm MD PCP - General Internal Medicine 07/31/15 10/02/24 Corrina Cm MD [address] [place] [address] PCP - [employer] Commercial Attributed 06/03/20 06/02/23 Corrina Cm MD [address] [place] [address] PCP - [place] Commercial Attributed 10/01/24 documented as of this encounter
--- OUTSIDE RECORDS SUMMARY | 2025-04-03 07:18 | XMS_ITS | Encounter Summary ---
Author Organization [facility] Address [address] [place] [address] Care Team Providers Care Felt Puller Name Role Phone Corrina Cm MD Primary Care Provider [phone] Corrina Cm MD Unavailable [phone] Corrina Cm MD Unavailable [phone] Encounter Details Date Type Department Care Team (Late Contact Info) Description 06/05/2022 Scanned Document [facility]AN Corrina Cm MD [address] [place], [place] [phone] Social History Tobacco Use Types Packs/Day Years [...] on filedocumented in this encounter Care Teams Felt Puller Relationship Specialty Start Date End Date Corrina Cm MD PCP - General Internal Medicine 07/31/15 10/02/24 Corrina Cm MD [address] [place] [address] PCP - [employer] Commercial Attributed 06/03/20 06/02/23 Corrina Cm MD [address] [place], [place] [address] PCP - [place] Commercial Attributed 10/01/24 documented as of this encounter
--- OUTSIDE RECORDS SUMMARY | 2025-04-03 07:18 | XMS_ITS | Encounter Summary ---
Author Organization [address] [address] Care Team Providers Care Car Parker Name Role Phone Corrina Cm MD Primary Care Provider + [phone] Corrina Cm MD Unavailable [phone] Corrina Cm MD Unavailable [phone] Corrina Cm MD Unavailable [phone] Encounter Details Date Type Department Care Team (Late st Contact Info) Description 04/06/2020 Scanned Document [address] [place] [phone] Provider, Generic Social History Tobacco Use [...] filedocumented in this encounter Care Teams Car Parker Relationship Specialty Start Date End Date Corrina Cm MD PCP - General Internal Medicine 07/31/15 10/02/24 Corrina Cm MD [address] [place] [address] PCP - [employer] Commercial Attributed 06/03/20 06/02/23 Corrina Cm MD [address] [place] [address] PCP - [employer] Commercial Attributed 04/02/19 05/02/20 Corrina Cm MD [address] [place] [address] PCP - [place] Commercial Attributed 10/01/24 documented as of this encounter
--- OUTSIDE RECORDS SUMMARY | 2025-04-03 07:18 | XMS_ITS | Encounter Summary ---
Author Organization [facility] Address [address] [place] [address] Care Team Providers Care Trimmer Buffing Wheel Name Role Phone Corrina Cm MD Primary Care Provider + [phone] Corrina Cm MD Unavailable [phone] Corrina Cm MD Unavailable [phone] Corrina Cm MD Unavailable [phone] Encounter Details Date Type Department Care Team (Late st Contact Info) Description 05/07/2016 Scanned Document [facility] 100 [facility] [address] [place] [phone] Corrina Cm MD 100 [facility] [address] [place] [address] Social History Tobacco Use Types Packs/Day Years [...] on filedocumented in this encounter Care Teams Trimmer Buffing Wheel Relationship Specialty Start Date End Date Corrina Cm MD PCP - General Internal Medicine 07/31/15 10/02/24 Corrina Cm MD [address] [place] [address] PCP - [employer] Commercial Attributed 06/03/20 06/02/23 Corrina Cm MD [address] [place] [address] PCP - [employer] Commercial Attributed 04/02/19 05/02/20 Corrina Cm MD [address] [place] [address] PCP - [place] Commercial Attributed 10/01/24 documented as of this encounter
--- OUTSIDE RECORDS SUMMARY | 2025-04-03 07:18 | XMS_ITS | Encounter Summary ---
Author Organization [address] [address] Care Team Providers Care Price Accuracy Supervisor Name Role Phone Corrina Cm MD Primary Care Provider + [phone] Corrina Cm MD Unavailable [phone] Corrina Cm MD Unavailable [phone] Corrina Cm MD Unavailable [phone] Encounter Details Date Type Department Care Team (Late st Contact Info) Description 12/23/2018 Scanned Document [address] [phone] Provider, Generic Social History Tobacco [...] on filedocumented in this encounter Care Teams Price Accuracy Supervisor Relationship Specialty Start Date End Date Corrina Cm MD PCP - General Internal Medicine 07/31/15 10/02/24 Corrina Cm MD [address] [place] [address] PCP - [employer] Commercial Attributed 06/03/20 06/02/23 Corrina Cm MD [address] [place] [address] PCP - [employer] Commercial Attributed 04/02/19 05/02/20 Corrina Cm MD [address] [place] [address] PCP - [place] Commercial Attributed 10/01/24 documented as of this encounter
--- OUTSIDE RECORDS SUMMARY | 2025-04-03 07:18 | XMS_ITS | Encounter Summary ---
Author Organization [facility] Address [address] [place] [address] Care Team Providers Care Investigator Fraud Name Role Phone Corrina Cm MD Primary Care Provider + [phone] Corrina Cm MD Unavailable [phone] Corrina Cm MD Unavailable [phone] Corrina Cm MD Unavailable [phone] Encounter Details Date Type Department Care Team (Late st Contact Info) Description 06/10/2017 Scanned Document [address] [place] [phone] Corrina Cm MD 100 [facility] [address] [place] [address] Social History Tobacco Use Types Packs/Day Years [...] on filedocumented in this encounter Care Teams Investigator Fraud Relationship Specialty Start Date End Date Corrina Cm MD PCP - General Internal Medicine 07/31/15 10/02/24 Corrina Cm MD [address] [place] [address] PCP - [employer] Commercial Attributed 06/03/20 06/02/23 Corrina Cm MD [address] [place] [address] PCP - [employer] Commercial Attributed 04/02/19 05/02/20 Corrina Cm MD [address] [place] [address] PCP - [place] Commercial Attributed 10/01/24 documented as of this encounter
--- OUTSIDE RECORDS SUMMARY | 2025-04-03 07:18 | XMS_ITS | Encounter Summary ---
Author Organization [facility] Address [address] [place] [address] Care Team Providers Care English Instructor Name Role Phone Corrina Cm MD Primary Care Provider + [phone] Corrina Cm MD Unavailable [phone] Corrina Cm MD Unavailable [phone] Corrina Cm MD Unavailable [phone] Encounter Details Date Type Department Care Team (Late st Contact Info) Description 03/11/2019 Scanned Document [address] [phone] General Internal Medicine, Scan Social [...] on filedocumented in this encounter Care Teams English Instructor Relationship Specialty Start Date End Date Corrina Cm MD PCP - General Internal Medicine 07/31/15 10/02/24 Corrina Cm MD [address] [place] [address] PCP - [employer] Commercial Attributed 06/03/20 06/02/23 Corrina Cm MD [address] [place] [address] PCP - [employer] Commercial Attributed 04/02/19 05/02/20 Corrina Cm MD [address] [place] [address] PCP - [place] Commercial Attributed 10/01/24 documented as of this encounter
--- OUTSIDE RECORDS SUMMARY | 2025-04-03 07:18 | XMS_ITS | Encounter Summary ---
Author Organization [address] [address] Care Team Providers Care Shoulder Joiner Name Role Phone Corrina Cm MD Primary Care Provider + [phone] Corrina Cm MD Unavailable [phone] Corrina Cm MD Unavailable [phone] Corrina Cm MD Unavailable [phone] Encounter Details Date Type Department Care Team (Late st Contact Info) Description 08/06/2017 Scanned Document [address] [phone] Provider, Generic Social History [...] on filedocumented in this encounter Care Teams Shoulder Joiner Relationship Specialty Start Date End Date Corrina Cm MD PCP - General Internal Medicine 07/31/15 10/02/24 Corrina Cm MD [address] [place] [address] PCP - [employer] Commercial Attributed 06/03/20 06/02/23 Corrina Cm MD [address] [place] [address] PCP - [employer] Commercial Attributed 04/02/19 05/02/20 Corrina Cm MD [address] [place] [address] PCP - [place] Commercial Attributed 10/01/24 documented as of this encounter
--- OUTSIDE RECORDS SUMMARY | 2025-04-03 07:18 | XMS_ITS | Encounter Summary ---
Author Organization [facility] Address [address] [place] [address] Care Team Providers Care Production Recorder Name Role Phone Corrina Cm MD Primary Care Provider + [phone] Corrina Cm MD Unavailable [phone] Corrina Cm MD Unavailable [phone] Corrina Cm MD Unavailable [phone] Encounter Details Date Type Department Care Team (Late st Contact Info) Description 07/30/[address] [place] [phone] Provider, Generic Social History Tobacco Use Types [...] filedocumented in this encounter Care Teams Production Recorder Relationship Specialty Start Date End Date Corrina Cm MD PCP - General Internal Medicine 07/31/15 10/02/24 Corrina Cm MD [address] [facility] [address] [place] [address] PCP - [employer] Commercial Attributed 06/03/20 06/02/23 Corrina Cm MD [address] [place] [address] PCP - [employer] Commercial Attributed 04/02/19 05/02/20 Corrina Cm MD [address] [place] [address] PCP - [place] Commercial Attributed 10/01/24 documented as of this encounter
--- OUTSIDE RECORDS SUMMARY | 2025-04-03 07:18 | XMS_ITS | Clinical Summary ---
Author Organization [facility] Address [address] [place] [address] Care Team Providers Care Residential Sales Consultant Name Role Phone Corrina Cm MD Primary Care Provider [phone] Allergies No known active allergies Medications Medication [...] Advance Directives For more information, please contact: [phone] Latest Code Status on File Code Status Date Activated Date Inactivated Comments Full Code 12/23/2018 8:53 PM 12/28/2018 3:35 PM This code status was ascertained in the following way: discussion with patient . Care Teams Residential Sales Consultant Relationship Specialty Start Date End Date Corrina Cm MD [address] [place] [address] PCP - General Internal Medicine 09/04/16
--- OUTSIDE RECORDS SUMMARY | 2025-04-03 07:18 | XMS_ITS | Encounter Summary ---
Author Organization [address] [address] Care Team Providers Care Pickle Pumper Name Role Phone Corrina Cm MD Primary Care Provider + [phone] Corrina Cm MD Unavailable [phone] Corrina Cm MD Unavailable [phone] Corrina Cm MD Unavailable [phone] Encounter Details Date Type Department Care Team (Late st Contact Info) Description 08/05/2017 Scanned Document [address] [phone] Provider, Generic Social History Tobacco [...] on filedocumented in this encounter Care Teams Pickle Pumper Relationship Specialty Start Date End Date Corrina Cm MD PCP - General Internal Medicine 07/31/15 10/02/24 Corrina Cm MD [address] [place] [address] PCP - [employer] Commercial Attributed 06/03/20 06/02/23 Corrina Cm MD [address] [place] [address] PCP - [employer] Commercial Attributed 04/02/19 05/02/20 Corrina Cm MD [address] [place] [address] PCP - [place] Commercial Attributed 10/01/24 documented as of this encounter
--- OUTSIDE RECORDS SUMMARY | 2025-04-03 07:18 | XMS_ITS | Encounter Summary ---
Author Organization [address] [address] Care Team Providers Care Blooming Mill Supervisor Name Role Phone Corrina Cm MD Primary Care Provider Corrina Cm MD Unavailable [phone] Corrina Cm MD Unavailable [phone] Encounter Details Date Type Department Care Team (Late st Contact Info) Description 03/30/2021 Scanned Document [address] [phone] Provider, Generic Social History Tobacco [...] on filedocumented in this encounter Care Teams Blooming Mill Supervisor Relationship Specialty Start Date End Date Corrina Cm MD PCP - General Internal Medicine 07/31/15 10/02/24 Corrina Cm MD [address] [place] [address] PCP - [employer] Commercial Attributed 06/03/20 06/02/23 Corrina Cm MD [address] [place] [address] PCP - [place] Commercial Attributed 10/01/24 documented as of this encounter
--- OUTSIDE RECORDS SUMMARY | 2025-04-03 07:18 | XMS_ITS | Encounter Summary ---
Author Organization [facility] Address [address] [place] [address] Care Team Providers Care Clay Maker Name Role Phone Corrina Cm MD Primary Care Provider + [phone] Corrina Cm MD Unavailable [phone] Corrina Cm MD Unavailable [phone] Corrina Cm MD Unavailable [phone] Encounter Details Date Type Department Care Team (Late st Contact Info) Description 01/25/2019 Scanned Document [facility] [address] [facility] [address] [place] [phone] Crorina Cm MD 100 [facility] [address] [place] [address] Social History Tobacco Use Types Packs/Day Years [...] on filedocumented in this encounter Care Teams Clay Maker Relationship Specialty Start Date End Date Corrina Cm MD PCP - General Internal Medicine 07/31/15 10/02/24 Corrina Cm MD [address] [place] [address] PCP - [employer] Commercial Attributed 06/03/20 06/02/23 Corrina Cm MD [address] [place] [address] PCP - [employer] Commercial Attributed 04/02/19 05/02/20 Corrina Cm MD [address] [place] [address] PCP - [place] Commercial Attributed 10/01/24 documented as of this encounter
--- OUTSIDE RECORDS SUMMARY | 2025-04-03 07:18 | XMS_ITS | Encounter Summary ---
Author Organization [address] [address] Care Team Providers Care Talent Scout Name Role Phone Corrina Cm MD Primary Care Provider Corrina Cm MD Unavailable [phone] Crorina Cm MD Unavailable [phone] Encounter Details Date Type Department Care Team (Late st Contact Info) Description 05/30/2021 Scanned Document [address] [phone] Provider, Generic Social History [...] on filedocumented in this encounter Care Teams Talent Scout Relationship Specialty Start Date End Date Corrina Cm MD PCP - General Internal Medicine 07/31/15 10/02/24 Corrina Cm MD [address] [facility] [place] [address] PCP - [employer] Commercial Attributed 06/03/20 06/02/23 Corrina Cm MD [address] [place] [address] PCP - [place] Commercial Attributed 10/01/24 documented as of this encounter
--- OUTSIDE RECORDS SUMMARY | 2025-04-03 07:18 | XMS_ITS | Encounter Summary ---
Author Organization [address] [address] Care Team Providers Care Community Arts Officer Name Role Phone Corrina Cm MD Primary Care Provider + [phone] Corrina Cm MD Unavailable [phone] Corrina Cm MD Unavailable [phone] Corrina Cm MD Unavailable [phone] Encounter Details Date Type Department Care Team (Late st Contact Info) Description 06/20/2017 Scanned Document [address] [phone] Provider, Generic Social History Tobacco [...] on filedocumented in this encounter Care Teams Community Arts Officer Relationship Specialty Start Date End Date Corrina Cm MD PCP - General Internal Medicine 07/31/15 10/02/24 Corrina Cm MD [address] [place] [address] PCP - [employer] Commercial Attributed 06/03/20 06/02/23 Corrina Cm MD [address] [place] [address] PCP - [employer] Commercial Attributed 04/02/19 05/02/20 Corrina Cm MD [address] [place] [address] PCP - [place] Commercial Attributed 10/01/24 documented as of this encounter
--- OUTSIDE RECORDS SUMMARY | 2025-04-03 07:18 | XMS_ITS | Encounter Summary ---
Author Organization [facility] Address [address] [place] [address] Care Team Providers Care Chinchilla Machine Operator Name Role Phone Corrina Cm MD Primary Care Provider + [phone] Corrina Cm MD Unavailable [phone] Corrina Cm MD Unavailable [phone] Encounter Details Date Type Department Care Team (Late st Contact Info) Description 06/12/2020 Scanned Document [address] [phone] Provider, Generic Social History Tobacco Use Types [...] on filedocumented in this encounter Care Teams Chinchilla Machine Operator Relationship Specialty Start Date End Date oCrrina Cm MD PCP - General Internal Medicine 07/31/15 10/02/24 Corrina Cm MD [address] [place] [address] [address] [place] [address] PCP - [employer] Commercial Attributed 06/03/20 06/02/23 Corrina Cm MD [address] [place] [address] PCP - [place] Commercial Attributed 10/01/24 documented as of this encounter
--- OUTSIDE RECORDS SUMMARY | 2025-04-03 07:18 | XMS_ITS | Encounter Summary ---
Author Organization [address] [address] Care Team Providers Care Gear Tooth Grinding Machine Operator Name Role Phone Corrina Cm MD Primary Care Provider Corrina Cm MD Unavailable [phone] Corrina Cm MD Unavailable [phone] Encounter Details Date Type Department Care Team (Late st Contact Info) Description 01/06/2021 Scanned Document [address] [phone] Provider, Generic Social History Tobacco [...] on filedocumented in this encounter Care Teams Gear Tooth Grinding Machine Operator Relationship Specialty Start Date End Date Corrina Cm MD PCP - General Internal Medicine 07/31/15 10/02/24 Corrina Cm MD [address] [place] [address] PCP - [employer] Commercial Attributed 06/03/20 06/02/23 Corrina Cm MD [address] [place] [address] PCP - [place] Commercial Attributed 10/01/24 documented as of this encounter
--- OUTSIDE RECORDS SUMMARY | 2025-04-03 07:19 | XMS_ITS | Encounter Summary ---
Author Organization [address] [address] Care Team Providers Care Management Tech Name Role Phone Corrina Cm MD Primary Care Provider Corrina Cm MD Unavailable [phone] Corrina Cm MD Unavailable [phone] Corrina Cm MD Unavailable [phone] Encounter Details Date Type Department Care Team (Late st Contact Info) Description 05/23/2017 Scanned Document [address] [phone] Provider, Generic Social History Tobacco [...] on filedocumented in this encounter Care Teams Management Tech Relationship Specialty Start Date End Date Corrina Cm MD PCP - General Internal Medicine 07/31/15 10/02/24 Corrina Cm MD [address] [place] [address] PCP - [employer] Commercial Attributed 06/03/20 06/02/23 Corrina Cm MD [address] [place] [address] PCP - [employer] Commercial Attributed 04/02/19 05/02/20 Corrina Cm MD [address] [place] [address] PCP - [place] Commercial Attributed 10/01/24 documented as of this encounter
--- OUTSIDE RECORDS SUMMARY | 2025-04-03 07:19 | XMS_ITS | Encounter Summary ---
Author Organization [facility] Address [address] [place] [address] Care Team Providers Care Jailer/Training Officer Name Role Phone Corrina Cm MD Primary Care Provider + [phone] Corrina Cm MD Unavailable [phone] Corrina Cm MD Unavailable [phone] Corrina Cm MD Unavailable [phone] Encounter Details Date Type Department Care Team (Late st Contact Info) Description 09/18/2015 Scanned Document [address] [phone] Provider, Generic Social History Tobacco [...] on filedocumented in this encounter Care Teams Jailer/Training Officer Relationship Specialty Start Date End Date Corrina Cm MD PCP - General Internal Medicine 07/31/15 10/02/24 Corrina Cm MD [address] [place] [address] PCP - [employer] Commercial Attributed 06/03/20 06/02/23 Corrina Cm MD [address] [place] [address] PCP - [employer] Commercial Attributed 04/02/19 05/02/20 Corrina Cm MD [address] [place] [address] PCP - [place] Commercial Attributed 10/01/24 documented as of this encounter
--- OUTSIDE RECORDS SUMMARY | 2025-04-03 07:19 | XMS_ITS | Clinical Summary ---
Author Organization [facility] Address [address] [place] [address] Care Team Providers Care Smocking Machine Operator Name Role Phone Corrina Cm MD Unavailable [phone] Allergies No known active allergies Medications No [...] topic Hepatitis C Virus Screening Discontinued Insurance [employer] INDIVIDUAL EXCHANGE PPO BLUE [employer]OSS INDIVIDUAL EXCHANGE PPO Care Teams Smocking Machine Operator Relationship Specialty Start Date End Date Corrina Cm MD [address] [place] [address] PCP - [place] Commercial Attributed 10/01/24
--- OUTSIDE RECORDS SUMMARY | 2025-04-03 07:19 | XMS_ITS | Encounter Summary ---
Author Organization [facility] Address [address] [place] [address] Care Team Providers Care Performance Improvement Consultant Name Role Phone Corrina Cm MD Primary Care Provider Corrina Cm MD Unavailable [phone] Corrina Cm MD Unavailable [phone] Corrina Cm MD Unavailable [phone] Encounter Details Date Type Department Care Team (Late st Contact Info) Description 11/20/2015 Scanned Document [address] [phone] Provider, Generic Social History Tobacco [...] on filedocumented in this encounter Care Teams Performance Improvement Consultant Relationship Specialty Start Date End Date Corrina Cm MD PCP - General Internal Medicine 07/31/15 10/02/24 Corrina Cm MD [address] [place] [address] PCP - [employer] Commercial Attributed 06/03/20 06/02/23 Corrina Cm MD [address] [place] [address] PCP - [employer] Commercial Attributed 04/02/19 05/02/20 Corrina Cm MD [address] [place] [address] PCP - [place] Commercial Attributed 10/01/24 documented as of this encounter
--- OUTSIDE RECORDS SUMMARY | 2025-04-03 07:19 | XMS_ITS | Encounter Summary ---
Author Organization [facility] Address [address] [place] [address] Care Team Providers Care Database Admin Name Role Phone Corrina Cm MD Primary Care Provider Corrina Cm MD Unavailable [phone] Corrina Cm MD Unavailable [phone] Corrina Cm MD Unavailable [phone] Encounter Details Date Type Department Care Team (Late st Contact Info) Description 09/04/2016 Scanned Document [address] [phone] Provider, Generic Social History Tobacco [...] on filedocumented in this encounter Care Teams Database Admin Relationship Specialty Start Date End Date Corrina Cm MD PCP - General Internal Medicine 07/31/15 10/02/24 Corrina Cm MD [address] [place] [address] PCP - [employer] Commercial Attributed 06/03/20 06/02/23 Corrina Cm MD [address] [place] [address] PCP - [employer] Commercial Attributed 04/02/19 05/02/20 Corrina Cm MD [address] [place] [address] PCP - [place] Commercial Attributed 10/01/24 documented as of this encounter
--- OUTSIDE RECORDS SUMMARY | 2025-04-03 07:19 | XMS_ITS | Encounter Summary ---
Author Organization [facility] Address [address] [place] [address] Care Team Providers Care Earth Science Technician Name Role Phone Corrina Cm MD Primary Care Provider Corrina Cm MD Unavailable [phone] Corrina Cm MD Unavailable [phone] Corrina Cm MD Unavailable [phone] Encounter Details Date Type Department Care Team (Late st Contact Info) Description 05/29/2017 Scanned Document [address] [phone] Provider, Generic Social History Tobacco [...] on filedocumented in this encounter Care Teams Earth Science Technician Relationship Specialty Start Date End Date Corrina Cm MD PCP - General Internal Medicine 07/31/15 10/02/24 Corrina Cm MD [address] [place] [address] PCP - [employer] Commercial Attributed 06/03/20 06/02/23 Corrina Cm MD [address] [place] [address] PCP - [employer] Commercial Attributed 04/02/19 05/02/20 Corrina Cm MD [address] [place] [address] PCP - [place] Commercial Attributed 10/01/24 documented as of this encounter
[2025-04-03 08:30] LABS: MANUAL DIFF FLAG NO
[2025-04-03 08:34] LABS: Hematocrit 44.4 % (42.0-52.0); Hemoglobin 14.7 g/dl (14.0-18.0); Imm Gran Abs Auto 0.01 X10*3/uL (0.00-0.03); Imm Gran Pct Auto 0.2 % (0.0-0.4); Lymphocytes Absolute Auto 1.0 X10*3/uL (1.2-4.9); Mean Corpuscular HGB Conc 33.1 g/dl (31.0-36.0); Mean Corpuscular Hemoglobin 27.9 pg (27.0-33.0); Mean Corpuscular Volume 84.3 fL (80.0-98.0); NRBC Abs Auto 0.000 X10*3/uL (0.0-0.012); NRBC Pct Auto 0.0 /100WBC (0.0-0.2); Platelet Count 142 X10*3/uL (160-400); Red Blood Count 5.27 X10*6/uL (4.60-5.80); White Blood Count 4.2 X10*3/uL (4.8-10.8)
[2025-04-03 08:35] LABS: Appearance Urine Clear; Glucose Urine UA Negative (Negative); PH 5.5 (5.0-9.0); Specific Gravity - Urine 1.020 (1.005-1.025)
[2025-04-03 09:14] LABS: Alanine Aminotransferase 15 U/L (0-40); Albumin Level 4.5 g/dL (3.5-5.0); Alkaline Phosphatase 53 U/L (39-117); Anion Gap 8 (12-20); Aspartate Amino Transferase 22 U/L (5-37); Blood Urea Nitrogen 12 mg/dL (9-16); Calcium 9.5 mg/dL (8.4-10.2); Carbon Dioxide 30 mmol/L (22-29); Chloride 108 mmol/L (96-108); Cholesterol 176 mg/dL (<200); Estimated Glomerular Filt Rate > 60; HDL Cholesterol 37 mg/dL (>40); Potassium 4.0 mmol/L (3.3-5.1); Sodium 142 mmol/L (135-145); Total Protein 7.1 g/dL (6.5-8.0); Triglycerides 73 mg/dL (<150)
[2025-04-03 09:30] LABS: PSA,Total (Free>4and<10) 0.88 ng/mL (0.00-4.00)
== END 2025-04-03 07:17 | disposition home or self-care (01) ==
LOC: HO.10HDL 07:16
DX: Z00.00 Encounter for general adult medical examination without abnormal findings (principal)
CPT/HCPCS: 36415; 80053; 80061; 81003; 82306; 84153; 84443; 85025

== ENCOUNTER 2025-04-11 08:02 | Outpatient (AMB) | payer OTHER, SELFPAY ==
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
[2025-04-11 08:19] VITALS: BP 122/64; PULSE 60; RESP 18; O2SAT 98; BMI 25.7
== END 2025-04-11 09:14 | disposition home or self-care (01) ==
LOC: HO.HMCH 08:03
DX: Z00.00 Encounter for general adult medical examination without abnormal findings (principal); K21.9 Gastro-esophageal reflux disease without esophagitis; R35.0 Frequency of micturition; F41.9 Anxiety disorder, unspecified; M25.511 Pain in right shoulder; R10.9 Unspecified abdominal pain; E78.00 Pure hypercholesterolemia, unspecified; D69.6 Thrombocytopenia, unspecified; E55.9 Vitamin D deficiency, unspecified; K57.90 Diverticulosis of intestine, part unspecified, without perforation or abscess without bleeding

== ENCOUNTER → 2025-04-11 08:02 | Outpatient (BNVA) | payer OTHER, SELFPAY | DX: Z00.00 Encounter for general adult medical examination without abnormal findings (principal); K21.9 Gastro-esophageal reflux disease without esophagitis; R35.0 Frequency of micturition; F41.9 Anxiety disorder, unspecified; M25.511 Pain in right shoulder; R10.9 Unspecified abdominal pain; E78.00 Pure hypercholesterolemia, unspecified; D69.6 Thrombocytopenia, unspecified; E55.9 Vitamin D deficiency, unspecified; K57.90 Diverticulosis of intestine, part unspecified, without perforation or abscess without bleeding | CPT/HCPCS: 99396 ==